=== PATIENT | female | born 1965 | race Hispanic/Latino ===

== ENCOUNTER 2025-02-19 06:11 | Inpatient (IN) | payer OTHER, SELFPAY ==
[2024-12-18 15:09] VITALS: BMI 43.0
[2024-12-20 03:28] VITALS: PULSE 79; RESP 12; O2SAT 97
[2025-02-16 07:50] VITALS: BMI 43.9
[2025-02-19] VITALS (42 sets, daily range): BP systolic 58–124; BP diastolic 39–78; PULSE 77–110; RESP 10–50; TEMP 30–37.3; O2SAT 94–100; BMI 43.9; BMI 44.5
--- NOTE | 2025-02-19 | DI.RAD.S_ITS ---
PROCEDURE: XR ANKLE RT MIN 3V INDICATIONS: RT ANKLE ORIF TECHNIQUE: 3 views of the ankle were acquired. COMPARISON: [facility], CR, XR ANKLE 3+ VIEWS RIGHT, 02/17/2025, 10:31. FINDINGS: Intraoperative ORIF at the ankle. There appears to be amputation of the distal fibula. Relatively good anatomic alignment is present. IMPRESSION: Intraoperative ORIF. Dictated by: Neema Ford M.D. on 02/19/2025 at 15:40 Approved by: Neema Ford M.D. on 02/19/2025 at 15:41
--- NOTE | 2025-02-19 06:53 | PM.HP.1 ---
History of Present Illness History of Present Illness Chief complaint: R ankle fusion Narrative: 60 year old female here for pre-op. Surgical course was complicated by poor bone quality secondary to acute Charcot neuroarthropathy as evidenced by loss of fixation via external and internal s/p delta frame removal, as well as full-thickness wounds to lateral and medial ankles as well as eschar to posterior heel, which are all improving since onset. Pain is absent. Patient denies n/v/f/c/sob/cp. FORMERLY [facility] Medical History 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) GERD (gastroesophageal reflux disease) Ankle fracture, right (10/23/24) PVD (peripheral vascular disease) HTN (hypertension) Diabetes NSTEMI (non-ST elevated myocardial infarction) (10/24/24) HLD (hyperlipidemia) Surgical History History of ankle surgery (10/29/24) Hx of cardiac cath (10/26/24) History of amputation of toe Social History household members: children alcohol intake: never Meds Home Medications and Allergies Home Medications ?Medication ?Instructions ?Recorded ?Confirmed ?Type aspirin 81 mg capsule 81 mg PO DAILY 12/12/24 02/19/25 History cetirizine 10 mg capsule 10 mg PO DAILY PRN Allergies 12/12/24 02/19/25 History gabapentin 100 mg capsule 200 mg PO TID 12/12/24 02/19/25 History glipizide 5 mg tablet, extended 5 mg PO QAM 12/12/24 02/19/25 History release 24 hr hydrochlorothiazide 25 mg tablet 25 mg PO DAILY 12/12/24 02/19/25 History insulin human U-100 NPH-regulr 36 unit SUBCUT BID 12/12/24 02/19/25 History 70-30 mix 100 unit/mL subcutaneous susp (Novolin 70/30 U-100 Insulin) losartan 100 mg tablet 100 mg PO DAILY 12/12/24 02/19/25 History metoprolol tartrate 25 mg tablet 25 mg PO DAILY 12/12/24 02/19/25 History simvastatin 40 mg tablet 40 mg PO QPM 12/12/24 02/19/25 History tirzepatide 2.5 mg/0.5 mL 2.5 mg SUBCUT QWEEK 12/12/24 02/19/25 History subcutaneous pen injector (Sabina) doxycycline monohydrate 100 mg 100 mg PO BID #14 caps 12/20/24 02/19/25 Rx capsule Allergies Allergy/AdvReac Type Severity Reaction Status Date / Time No Known Drug Allergies Allergy Verified 02/19/25 06:43 Exam Extrem Other: Right ankle: valgus alginment with mulitple wounds and eschars Assessment & Plan Assessment & Plan narrative: 1. Right ankle neuropathic joint, fracture, and dislocation Patient seen and evaluated. Surgical plan: right tibiotalocalcaneal arthrodesis with hardware removals and wound vac application. Risks and benefits of the procedure discussed with all questions answered to patient's satisfaction. Reviewed potential complications that may include but not limited to the following: DVT, failure to resolve all symptoms, infection, nerve injury, bleeding, recurrence, or wound. Reviewed surgical technique and general aftercare protocols. All questions answered to patient's satisfaction with no guarantees made. Patient verbalized understanding and agreed with surgical plan. RTC as scheduled. Time-Based Coding :: [TOTAL MINUTES] spent with patient and on the chart (including review of chart, obtaining history, exam, reviewing outside data, placing orders, documenting exam and treatment plan, and counseling patient) on [DATE].
--- NOTE | 2025-02-19 06:57 | PM.PREOP ---
Pre-operative Note Interval Note History & Physical reviewed/Exam performed by Physician: Yes Changes to H&P: No
[2025-02-19] MEDS: LACTATED RINGERS 1,000 ML 100 ML IV ×3 (07:13→16:46)
--- NOTE | 2025-02-19 09:12 | SUR.OPER ---
PRE-PROCEDURE SKIN ASSESSMENT- WOUNDS TO RIGHT LOWER EXTREMITY: LATERAL AND MEDIAL ANKLE AND HEEL. SCATTERED, GENERALIZED BRUISING TO RIGHT LOWER EXTREMITY
[2025-02-19 09:16] LABS: Add Manual Diff / Slide Review NO; Hematocrit 35.2 % (36-46); Hemoglobin 11.9 g/dL (12.0-16.0); Lymphocytes Absolute Auto 3200 /uL (1100-4500); Mean Corpuscular HGB Conc 33.8 % (30-36); Mean Corpuscular Hemoglobin 28.0 PG (26-34); Mean Corpuscular Volume 82.6 fL (80-100); Platelet Count 341 X10^3/uL (150-400)
--- NOTE | 2025-02-19 10:19 | SUR.OPER ---
Supine on padded OR bed, head on pillow, arms secured on padded arm boards at <90 degrees abduction, legs uncrossed, safety belt at waist, tape over blanket over lower left leg. Hip gel bump to right side/hip per surgeon direction. Gel pad under right thigh to cover and protect patient skin from le catheter tubing. Gel pad to left heel. Final position approved by surgeon prior to start of procedure. All pressure points padded and protected.
[2025-02-19] MEDS: SODIUM CHLORIDE IRRIG SOLUTION 3,000 ML, GENTAMICIN 240 MG IRR (10:25)
[2025-02-19] MEDS: ACETAMINOPHEN IV 1,000 MG/100 ML VIAL 400 MG IV (13:34)
[2025-02-19] MEDS: INSULIN REGULAR 100 UNIT/ML 3 ML VIAL IV (14:20)
--- NOTE | 2025-02-19 15:37 | EKG_ITS ---
[address] [address] Test Date: 2025-02-19 Pat Name: Janine Barrios Department: [facility] Room: Gender: Female [employer] Supervisor: KIKO : 1965 Requested By: Order Number: [id number] Reading MD: Andrea Paul Measurements Intervals [place] Rate: 96 P: 41 TX: 132 QRS: 64 QRSD: 68 T: 58 QT: 362 QTc: 457 Interpretive Statements Normal sinus rhythm Electronically Signed On 02-19-2025 17:12:51 PDT by Andrea Paul
--- NOTE | 2025-02-19 15:41 | PM.PN.1 ---
Subjective Subjective Interval history: Patient is s/p right tibiotalocalcaneal (pantalar fusion) with wound vac application. She would require Home Health and Wound Care to follow upon discharge. Please involve Case Management as necessary for Wound Vac authorization. Thank you. Exam Vital Signs (past 8 hours): - 02/19/25 14:59 Temperature 97.2 F L Pulse Rate 98 H Respiratory Rate 16 Blood Pressure 98/60 Pulse Oximetry 100 Oxygen Delivery Method Room Air Oxygen Flow Rate 4 Oxygen Delivery Method Room Air Oxygen Flow Rate 4 Objective Labs 02/19/25 07:35 Labs: Laboratory Results - last 24 hr 02/19/25 02/19/25 02/19/25 06:49 07:35 09:41 WBC 10.4 RBC 4.26 Hgb 11.9 L Hct 35.2 L MCV 82.6 MCH 28.0 MCHC 33.8 RDW 14.4 Plt Count 341 Neut % (Auto) 57.7 Lymph % (Auto) 31.0 Dane % (Auto) 7.5 Eos % (Auto) 3.3 Baso % (Auto) 0.5 Neut # (Auto) 6000 Lymph # (Auto) 3200 Dane # (Auto) 800 Eos # (Auto) 300 Baso # (Auto) 0 POC Whole Bld Glucose 129 H 151 H 02/19/25 02/19/25 02/19/25 11:50 13:56 14:54 WBC RBC Hgb Hct MCV MCH MCHC RDW Plt Count Neut % (Auto) Lymph % (Auto) Dane % (Auto) Eos % (Auto) Baso % (Auto) Neut # (Auto) Lymph # (Auto) Dane # (Auto) Eos # (Auto) Baso # (Auto) POC Whole Bld Glucose 149 H 211 H 200 H REPLACED BY [facility] Medical History 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) GERD (gastroesophageal reflux disease) Ankle fracture, right (10/23/24) PVD (peripheral vascular disease) HTN (hypertension) Diabetes NSTEMI (non-ST elevated myocardial infarction) (10/24/24) HLD (hyperlipidemia) Surgical History History of ankle surgery (10/29/24) Hx of cardiac cath (10/26/24) History of amputation of toe Social History household members: children Smoking Status: Never smoker alcohol intake: never Assessment & Plan Time-Based Coding :: [TOTAL MINUTES] spent with patient and on the chart (including review of chart, obtaining history, exam, reviewing outside data, placing orders, documenting exam and treatment plan, and counseling patient) on [DATE].
[2025-02-19 16:33] LABS: Hematocrit 26.8 % (36-46); Hemoglobin 8.9 g/dL (12.0-16.0); Mean Corpuscular HGB Conc 33.3 % (30-36); Mean Corpuscular Hemoglobin 27.8 PG (26-34); Mean Corpuscular Volume 83.5 fL (80-100); Platelet Count 324 X10^3/uL (150-400)
--- NOTE | 2025-02-19 16:41 | PM.CN ---
History of Present Illness Consult details Date Patient Seen: 02/19/25 Chief complaint: R ankle fusion Reason for consult: Post operative hypotension. Requesting provider: Wellington Nelson Narrative: HPI: The patient was a 60-year-old female with history of diabetes who underwent an ankle revision today. She had a talus fusion and wound VAC application. Her case was complicated by a 250 mL blood loss as well as persistent hypotension requiring 4 L of crystalloid and multiple boluses of Wilber-Synephrine. She required pressors for a short time after the surgery and then stabilized. She was transferred to the ICU he was able to come off from pressors. She does have a history of a perioperative NSTEMI in the past but denies any chest pain, or dyspnea. She does have a history of CLARA in his used BiPAP while in the hospital in the past. There were no other complications reported from the surgical team. ROS: All else reviewed and otherwise unremarkable except as noted in the history and physical. PMH: NSTEMI CLARA Morbid obesity PVD DM HTN HLD O: NAD, alert and oriented, fluent speech, calm. Normocephalic skull, EOMI, anicteric sclera, symmetric pupils. Oropharynx unremarkable, no droop. Neck supple, midline trachea, no adenopathy. Lungs clear, normal rate and effort. Heart regular, no murmur gallop or rub. Abdomen is soft, non distended and non tender. Extremities are free of edema. Skin is free of rash or lesions. Joints are not swollen or deformed. Judgment appears to be normal. The right lower extremity is wrapped and there was a wound VAC applied under the dressing. A/P: 1. Intraoperative and postoperative hypotension, improved. 2. Diabetes type 2, insulin-dependent. 3. CLARA with use of N PPV at home. 4. Hypertension 5. Morbid obesity. 6. Anemia PLAN: -we will use insulin sliding scale tonight and a carb controlled diet. -we will continue IV fluids at 100 mL/hour and monitor blood pressure. -we will stop antibiotics after her perioperative doses and continue wound VAC. -we will hold blood pressure pills for tonight start these in the morning if her pressure started to increase. -monitor hemoglobin -monitored troponin tonight and tomorrow morning -discharge planning which apparently will include a wound VAC. Full code. 35 min spent. Meds Home Medications and Allergies Home Medications ?Medication ?Instructions ?Recorded ?Confirmed ?Type aspirin 81 mg capsule 81 mg PO DAILY 12/12/24 02/19/25 History cetirizine 10 mg capsule 10 mg PO DAILY PRN Allergies 12/12/24 02/19/25 History gabapentin 100 mg capsule 200 mg PO TID 12/12/24 02/19/25 History glipizide 5 mg tablet, extended 5 mg PO QAM 12/12/24 02/19/25 History release 24 hr hydrochlorothiazide 25 mg tablet 25 mg PO DAILY 12/12/24 02/19/25 History insulin human U-100 NPH-regulr 36 unit SUBCUT BID 12/12/24 02/19/25 History 70-30 mix 100 unit/mL subcutaneous susp (Novolin 70/30 U-100 Insulin) losartan 100 mg tablet 100 mg PO DAILY 12/12/24 02/19/25 History metoprolol tartrate 25 mg tablet 25 mg PO DAILY 12/12/24 02/19/25 History simvastatin 40 mg tablet 40 mg PO QPM 12/12/24 02/19/25 History tirzepatide 2.5 mg/0.5 mL 2.5 mg SUBCUT QWEEK 12/12/24 02/19/25 History subcutaneous pen injector (Mounjaro) doxycycline monohydrate 100 mg 100 mg PO BID #14 caps 12/20/24 02/19/25 Rx capsule Allergies Allergy/AdvReac Type Severity Reaction Status Date / Time No Known Drug Allergies Allergy Verified 02/19/25 06:43 Exam Vital Signs (past 8 hours): - 02/19/25 14:59 02/19/25 15:05 02/19/25 15:10 Temperature 97.2 F L Pulse Rate 98 H 102 H 102 H Respiratory Rate 16 25 H 16 Blood Pressure 98/60 58/39 L 100/50 L Pulse Oximetry 100 98 98 Oxygen Delivery Method Room Air Nasal Cannula Nasal Cannula Oxygen Flow Rate 4 4 4 02/19/25 15:10 02/19/25 15:15 02/19/25 15:15 Temperature 97.2 F L Pulse Rate 98 H 77 92 H Respiratory Rate 16 16 16 Blood Pressure 99/51 L 100/62 120/70 Pulse Oximetry 100 98 98 Oxygen Delivery Method Room Air Room Air Nasal Cannula Oxygen Flow Rate 4 02/19/25 15:30 02/19/25 15:45 Temperature 97.2 F L Pulse Rate 110 H 78 Respiratory Rate 14 16 Blood Pressure 120/70 124/78 Pulse Oximetry 98 98 Oxygen Delivery Method Nasal Cannula Nasal Cannula Oxygen Flow Rate 4 4 Oxygen Delivery Method Nasal Cannula Oxygen Flow Rate 4 Objective Labs 02/19/25 15:40 02/19/25 15:40 Labs: Laboratory Results - last 24 hr 02/19/25 02/19/25 02/19/25 06:49 07:35 09:41 WBC 10.4 RBC 4.26 Hgb 11.9 L Hct 35.2 L MCV 82.6 MCH 28.0 MCHC 33.8 RDW 14.4 Plt Count 341 Neut % (Auto) 57.7 Lymph % (Auto) 31.0 [place] % (Auto) 7.5 Eos % (Auto) 3.3 Baso % (Auto) 0.5 Neut # (Auto) 6000 Lymph # (Auto) 3200 [place] # (Auto) 800 Eos # (Auto) 300 Baso # (Auto) 0 POC Whole Bld Glucose 129 H 151 H 02/19/25 02/19/25 02/19/25 11:50 13:56 14:54 WBC RBC Hgb Hct MCV MCH MCHC RDW Plt Count Neut % (Auto) Lymph % (Auto) [place] % (Auto) Eos % (Auto) Baso % (Auto) Neut # (Auto) Lymph # (Auto) [place] # (Auto) Eos # (Auto) Baso # (Auto) POC Whole Bld Glucose 149 H 211 H 200 H 02/19/25 02/19/25 15:40 16:31 WBC 15.2 H RBC 3.21 L Hgb 8.9 L Hct 26.8 L MCV 83.5 MCH 27.8 MCHC 33.3 RDW 14.3 Plt Count 324 Neut % (Auto) Lymph % (Auto) [place] % (Auto) Eos % (Auto) Baso % (Auto) Neut # (Auto) Lymph # (Auto) [place] # (Auto) Eos # (Auto) Baso # (Auto) POC Whole Bld Glucose 174 H [facility] Medical History 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) GERD (gastroesophageal reflux disease) Ankle fracture, right (10/23/24) PVD (peripheral vascular disease) HTN (hypertension) Diabetes NSTEMI (non-ST elevated myocardial infarction) (10/24/24) HLD (hyperlipidemia) Surgical History History of ankle surgery (10/29/24) Hx of cardiac cath (10/26/24) History of amputation of toe Social History household members: children Tobacco & Substance Use Smoking Status: Never smoker alcohol intake: never Assessment & Plan Time-Based Coding :: [TOTAL MINUTES] spent with patient and on the chart (including review of chart, obtaining history, exam, reviewing outside data, placing orders, documenting exam and treatment plan, and counseling patient) on [DATE].
[2025-02-19] MEDS: INSULIN LISPRO 100 UNIT/ML 3ML VIAL SUBCUT ×2 (16:44→22:00)
[2025-02-19] MEDS: ACETAMINOPHEN 325 MG TABLET 650 MG PO (16:45)
[2025-02-19 17:22] LABS: Alanine Aminotransferase 14 IU/L (<35); Albumin 3.0 g/dL (3.5-5.0); Albumin Globulin Ratio 1.0 (1.0-2.8); Alkaline Phosphatase 72 U/L (38-126); Blood Urea Nitrogen 25 mg/dL (7-17); Calcium 8.3 mg/dL (8.4-10.2); Carbon Dioxide 27 mmol/L (22-32); Chloride 103 mmol/L (98-107); Estimated Glomerular Filt Rate > 60 mL/min (>60); Globulin 3.1 g/dL (1.7-4.1); Glucose 171 mg/dL (70-99); HEMOLYSIS < 15 (0-50); Potassium 4.4 mmol/L (3.4-5.1); Sodium 135 mmol/L (137-145); Total Protein 6.1 g/dL (6.3-8.2)
[2025-02-19 17:32] LABS: Troponin I 0.039 ng/mL (0.01-0.034)
--- NOTE | 2025-02-19 18:18 | PC.ADMIT ---
[email or web address] Marti Admission Note: PATIENT ARRIVED TO UNIT AT 1610. GUILLERMO AC IVS. LR BOLUS RUNNING. 100% SPO2 ON ROOM AIR. NO S/S OF SOB OR RESPI DISTRESS. NO C/O PAIN AT THIS TIME. MAP > 65. SEE VITALS. DR ESCAMILLA AT BEDSIDE WITH PATIENT. DRESSING TO R FOOT WITH XANDER WRAP, SPLINT, AND WOUND VAC C/D/I. 175 MLS IN WOUND VAC CANISTER. LEG IS WARM TO TOUCH. PER PATIENT, LEG FEELS NUMB BUT SHE DOES HAVE SENSATION WITH TOUCH. PAN IN PLACE FROM OR. LABS SENT DOWN. SEE EMAR FOR MEDS GIVEN. CARE ONGOING. DONOR PAPERWORK GIVEN TO PATIENT . The patient,Janine Barrios,60 y/o, was given written information regarding hospital policies, unit procedures and contact persons. Patient's smoking status: Never smoker. Vital Signs - 8 hr 02/19/25 14:59 02/19/25 15:05 02/19/25 15:10 Temperature 97.2 F L Pulse Rate 98 H 102 H 102 H Respiratory Rate 16 25 H 16 Blood Pressure 98/60 58/39 L 100/50 L Pulse Oximetry 100 98 98 Oxygen Delivery Method Room Air Nasal Cannula Nasal Cannula Oxygen Flow Rate 4 4 4 02/19/25 15:10 02/19/25 15:15 02/19/25 15:15 Temperature 97.2 F L Pulse Rate 98 H 77 92 H Respiratory Rate 16 16 16 Blood Pressure 99/51 L 100/62 120/70 Pulse Oximetry 100 98 98 Oxygen Delivery Method Room Air Room Air Nasal Cannula Oxygen Flow Rate 4 02/19/25 15:30 02/19/25 15:45 02/19/25 16:10 Temperature 97.2 F L 97.8 F Pulse Rate 110 H 78 Respiratory Rate 14 16 Blood Pressure 120/70 124/78 Pulse Oximetry 98 98 Oxygen Delivery Method Nasal Cannula Nasal Cannula Oxygen Flow Rate 4 4 02/19/25 16:26 02/19/25 16:30 02/19/25 16:30 Temperature Pulse Rate 92 H 91 H Respiratory Rate 24 18 Blood Pressure 110/55 L Pulse Oximetry 100 100 Oxygen Delivery Method Oxygen Flow Rate 02/19/25 16:30 02/19/25 16:45 02/19/25 16:45 Temperature Pulse Rate 92 H Respiratory Rate 14 Blood Pressure 98/52 L Pulse Oximetry 100 Oxygen Delivery Method Nasal Cannula Oxygen Flow Rate 02/19/25 17:00 02/19/25 17:00 02/19/25 17:15 Temperature Pulse Rate 93 H 93 H Respiratory Rate 20 26 H Blood Pressure 100/58 L Pulse Oximetry 100 100 Oxygen Delivery Method Oxygen Flow Rate 02/19/25 17:15 02/19/25 17:30 02/19/25 17:30 Temperature Pulse Rate 92 H Respiratory Rate 19 Blood Pressure 102/54 L 98/51 L Pulse Oximetry 100 Oxygen Delivery Method Oxygen Flow Rate 02/19/25 17:45 02/19/25 17:45 Temperature Pulse Rate 92 H Respiratory Rate 17 Blood Pressure 93/52 L Pulse Oximetry 100 Oxygen Delivery Method Oxygen Flow Rate
[2025-02-19] MEDS: INSULIN GLARGINE 100 UNIT/ML 3ML PEN 25 UNIT SUBCUT (21:58)
[2025-02-19] MEDS: ATORVASTATIN 20 MG TABLET PO (22:01)
[2025-02-19] MEDS: DOXYCYCLINE HYCLATE 100 MG TABLET PO (22:01)
[2025-02-19] MEDS: GABAPENTIN 100 MG CAPSULE 200 MG PO (22:01)
[2025-02-19] MEDS: DOCUSATE 100 MG CAPSULE PO (22:02)
[2025-02-20] VITALS (56 sets, daily range): BP systolic 69–117; BP diastolic 33–60; PULSE 87–114; RESP 10–41; TEMP 30–36.4; O2SAT 94–100
[2025-02-20] MEDS: ACETAMINOPHEN 325 MG TABLET 650 MG PO ×4 (03:23→21:41)
[2025-02-20] MEDS: LACTATED RINGERS 1,000 ML 100 ML IV (04:22)
[2025-02-20 05:16] LABS: Hematocrit 21.1 % (36-46); Hemoglobin 7.2 g/dL (12.0-16.0); Mean Corpuscular HGB Conc 34.1 % (30-36); Mean Corpuscular Hemoglobin 28.3 PG (26-34); Mean Corpuscular Volume 83.2 fL (80-100); Platelet Count 225 X10^3/uL (150-400)
[2025-02-20 06:10] LABS: Troponin I 0.022 ng/mL (0.01-0.034)
[2025-02-20] MEDS: METOPROLOL IR 25 MG TABLET PO (08:20)
[2025-02-20] MEDS: DOXYCYCLINE HYCLATE 100 MG TABLET PO ×2 (08:20→21:41)
[2025-02-20] MEDS: DOCUSATE 100 MG CAPSULE PO ×2 (08:20→21:43)
[2025-02-20] MEDS: ASPIRIN EC 81 MG TABLET PO (08:20)
[2025-02-20] MEDS: LOSARTAN 50 MG TABLET 100 MG PO (08:20)
[2025-02-20] MEDS: GABAPENTIN 100 MG CAPSULE 200 MG PO ×3 (08:20→21:40)
[2025-02-20] MEDS: INSULIN GLARGINE 100 UNIT/ML 3ML PEN 25 UNIT SUBCUT ×2 (08:22→21:45)
[2025-02-20] MEDS: INSULIN LISPRO 100 UNIT/ML 3ML VIAL SUBCUT ×4 (08:23→16:56)
--- NOTE | 2025-02-20 08:29 | P.OP_ITS ---
Operative Date/Time/Diagnoses Date of procedure: 02/19/25 Time of procedure: 07:45 Pre-op diagnosis: 1. 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 Diabetic and pressure ulcers from previous skin injuries and surgeries Post-op diagnosis: same Procedure & Clinicians Procedure: 1. Tibiotalar arthrodesis 2. Talocalcaneal arthrodesis 3. Wound vac application 4. Hardware removal Same procedure(s) as scheduled: Yes Indications: Limb salvage Surgeon: Wellington Nelson Assisted?: No Anesthesia Type: General and Peripheral nerve block Operative Notes Findings: Consistent with diangosis Closure Type: non-primary (Partial-closure with wound vac application to lateral incision) Specimen(s): other (Medial ankle swab culture) Applied: catheter, device(s) and implant(s) Estimated Blood Loss (mL): 250 Blood products transfused: none Tourniquet time (min): 230 Procedure in detail: Patient was identified, marked, and consented. Regional anesthesia was performed at pre-op holding. Patient was transferred onto operating table and secured. General anesthesia was administered. A catheter was inserted. A 32 inch thigh tourniquet was applied over well-padded surface, and the machine was set to 300 mmHg. Right lower extremity was prepped and draped in the usual sterile fashion, followed by official timeout with the surgical team all in agreement. Attention was first directed to the lateral aspect of the leg. A curvilinear incision was made from anterolateral aspect of fibula, above the posteriorlateral wound, towards the base of fourth metatarsal using a #15 scalpel. Dissection was carried dwon to the level of the bone, where fibular plates were present and removed. Non-union with necrosis was noted to the bone. Extensive hypertrophic tissue were also sharply removed using appropriate instruments. Decision was made to perform transfibular osteotomy due to insufficiency of the bone. Attention was then directed to the lateral aspect of the ankle joint. The talus is laterally displaced with impaction into the tibia and no range of motion due to adhesion. Careful sharp dissection was carried out for exposure of the ankle mortise and judaism of anatomical alignment. At the same time, the joint was prepped in ancitipation for fusion. This inclusded resphaping of the distal tibial plafond due to congenital and acquired deformities. Decision was made to debride the chronic ulcer over medial malleolus due to underlying adhesion preventing the reduction of ankle joint. A deep wound culture was taken of the sanguineous drainage. Improved ankle alignment was verified on fluroscpoy. Attention was then directed to the lateral aspect of subtalar joint, which was sharpy exposed and prepared for fusion. Decision was then made to add bone putty to the prepped ankle and subtalar joints. The calcaneus was medialized due to rigid valgus deformity. Under interoperative fluoroscopy, a guide wire was retrograded for both talocalcaneal and tibiotalar arthrodesis. Following manufacture instructions, a 10.5 x 180 mm DualCompression Hindfoot Nail was inserted through a linear incision at the plantar aspect. Tourniquet was released before and at two hour mio with more than fifteen minues of rest in between. Surgical sites were irrigated copiously using 3 liters of normal saline mixed with 240 mg gentamicin solution. Primary closure was perfored on plantar heel as well as screw insertion points using 2-0 and 3-0 nylons. Partial closure was also performed at the proximal and distal aspects of the lateral incision with a central wound. Decision was then made to apply wound vac and bridge over the following wounds: lateral measuring approximately 6.5 x 4.5 x 3 cm and medial measuring 3.5 x 2.5 x 1 cm. The pressure was set and held continuous at 100 mmHg. Surgical limb was washed and dried. Dry sterile dressing was applied, followed by cast padding and posterior splint. Patient tolerated procedure without complication. Non-weight bearing to surgical limb. Elevate above heart. Ice behind knee intermittently. Keep dressing clean, dry, and intact except for wound vac changes. Complications: none Post-operative Condition: stable Disposition: ICU Plan for aftercare: Non-weight bearing to surgical limb. Elevate above heart. Ice behind knee intermittently. Keep dressing clean, dry, and intact except for wound vac changes.
--- NOTE | 2025-02-20 08:36 | PM.PN.1 ---
Subjective Subjective Interval history: Non-weight bearing to surgical limb. Elevate above heart on pillows. Ice behind knee 15 minutes/hour when awake. Keep dressing clean, dry, and intact except for wound vac changes/trouble shoot. Has outpatient appointment scheduled with me coming Sunday. Op note to follow. Appreciate cooperative efforts. Exam Vital Signs (past 8 hours): - 02/20/25 00:45 02/20/25 00:45 02/20/25 01:00 Pulse Rate 106 H 105 H Respiratory Rate 22 19 Blood Pressure 100/49 L Pulse Oximetry 95 97 Fraction of Inspired Oxygen 02/20/25 01:00 02/20/25 01:30 02/20/25 02:00 Pulse Rate 104 H 105 H Respiratory Rate 19 18 Blood Pressure 106/57 L Pulse Oximetry 94 95 Fraction of Inspired Oxygen 02/20/25 02:30 02/20/25 03:00 02/20/25 03:30 Pulse Rate 106 H 109 H 109 H Respiratory Rate 21 22 21 Blood Pressure Pulse Oximetry 96 97 97 Fraction of Inspired Oxygen 02/20/25 04:00 02/20/25 04:00 02/20/25 04:07 Pulse Rate 106 H 112 H Respiratory Rate 21 33 H Blood Pressure Pulse Oximetry 96 98 Fraction of Inspired Oxygen 25 02/20/25 04:07 Pulse Rate Respiratory Rate Blood Pressure 94/52 L Pulse Oximetry Fraction of Inspired Oxygen Fraction of Inspired Oxygen 25 Oxygen Delivery Method Nasal Cannula,BiPAP Oxygen Flow Rate 4 Objective Labs 02/20/25 05:01 02/19/25 16:57 Labs: Laboratory Results - last 24 hr 02/19/25 02/19/25 02/19/25 06:49 07:35 09:41 WBC 10.4 RBC 4.26 Hgb 11.9 L Hct 35.2 L MCV 82.6 MCH 28.0 MCHC 33.8 RDW 14.4 Plt Count 341 Neut % (Auto) 57.7 Lymph % (Auto) 31.0 [place] % (Auto) 7.5 Eos % (Auto) 3.3 Baso % (Auto) 0.5 Neut # (Auto) 6000 Lymph # (Auto) 3200 [place] # (Auto) 800 Eos # (Auto) 300 Baso # (Auto) 0 Sodium Potassium Chloride Carbon Dioxide BUN Creatinine Estimated GFR BUN/Creatinine Ratio Glucose POC Whole Bld Glucose 129 H 151 H Calcium Total Bilirubin AST ALT Alkaline Phosphatase Troponin I Total Protein Albumin Globulin Albumin/Globulin Ratio 02/19/25 02/19/25 02/19/25 11:50 13:56 14:54 WBC RBC Hgb Hct MCV MCH MCHC RDW Plt Count Neut % (Auto) Lymph % (Auto) [place] % (Auto) Eos % (Auto) Baso % (Auto) Neut # (Auto) Lymph # (Auto) [place] # (Auto) Eos # (Auto) Baso # (Auto) Sodium Potassium Chloride Carbon Dioxide BUN Creatinine Estimated GFR BUN/Creatinine Ratio Glucose POC Whole Bld Glucose 149 H 211 H 200 H Calcium Total Bilirubin AST ALT Alkaline Phosphatase Troponin I Total Protein Albumin Globulin Albumin/Globulin Ratio 02/19/25 02/19/25 02/19/25 15:40 16:31 16:57 WBC 15.2 H RBC 3.21 L Hgb 8.9 L Hct 26.8 L MCV 83.5 MCH 27.8 MCHC 33.3 RDW 14.3 Plt Count 324 Neut % (Auto) Lymph % (Auto) [place] % (Auto) Eos % (Auto) Baso % (Auto) Neut # (Auto) Lymph # (Auto) [place] # (Auto) Eos # (Auto) Baso # (Auto) Sodium 135 L Potassium 4.4 Chloride 103 Carbon Dioxide 27 BUN 25 H Creatinine 0.82 Estimated GFR > 60 BUN/Creatinine Ratio 30.5 H Glucose 171 H POC Whole Bld Glucose 174 H Calcium 8.3 L Total Bilirubin < 0.1 L AST 24 ALT 14 Alkaline Phosphatase 72 Troponin I 0.039 H Total Protein 6.1 L Albumin 3.0 L Globulin 3.1 Albumin/Globulin Ratio 1.0 02/19/25 02/20/25 02/20/25 21:47 05:01 07:51 WBC 9.2 RBC 2.54 L Hgb 7.2 L Hct 21.1 L MCV 83.2 MCH 28.3 MCHC 34.1 RDW 14.5 Plt Count 225 Neut % (Auto) Lymph % (Auto) [place] % (Auto) Eos % (Auto) Baso % (Auto) Neut # (Auto) Lymph # (Auto) [place] # (Auto) Eos # (Auto) Baso # (Auto) Sodium Potassium Chloride Carbon Dioxide BUN Creatinine Estimated GFR BUN/Creatinine Ratio Glucose POC Whole Bld Glucose 248 H 244 H Calcium Total Bilirubin AST ALT Alkaline Phosphatase Troponin I 0.022 Total Protein Albumin Globulin Albumin/Globulin Ratio [facility] Medical History 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) GERD (gastroesophageal reflux disease) Ankle fracture, right (10/23/24) PVD (peripheral vascular disease) HTN (hypertension) Diabetes NSTEMI (non-ST elevated myocardial infarction) (10/24/24) HLD (hyperlipidemia) Surgical History History of ankle surgery (10/29/24) Hx of cardiac cath (10/26/24) History of amputation of toe Social History household members: children Smoking Status: Never smoker alcohol intake: never Assessment & Plan Time-Based Coding :: [TOTAL MINUTES] spent with patient and on the chart (including review of chart, obtaining history, exam, reviewing outside data, placing orders, documenting exam and treatment plan, and counseling patient) on [DATE]. Quality VTE Deep Vein Thrombosis/Pulmonary Embolism Present on Admission: No
--- NOTE | 2025-02-20 14:08 | CM.DANOTE ---
DCP Assessment note pt is a 60yo F (Canadian speaking) POD1 right ankle fusion with Dr. Nelson. hospitalist following. TILE LAYER HELPER reviewed EMR. per Dr. Nelson note, would like for HH and would vac to be set up. preference for both OP and HH to follow wound care need. per Dr. Paul and Dr. Nelson, not stable for dc today. TILE LAYER HELPER worked with Kevan at [facility] throughout day, sent necessary clinicals/wound care order form. Per Frances at [facility], wound vac processed and ready for delivery tomorrow. TILE LAYER HELPER coordinated with both pt and Dtr Eugenia ([phone]) confirm they live together in [place]. Confirm dtr will be able to assist at home. Hx of services with [facility]. TILE LAYER HELPER sent referral to [facility]. completed f2f/HH order. they report they should be able to accept. P: anticipate dc tomorrow/when medically stable home with family/[facility]/wound vac. CM team will continue to follow closely for DCP coordination AMELIA Hinds Discharge Planning/Care Management CM Discharge Assessment Start: 02/19/25 15:51 Freq: Status: Active Protocol: Document 02/20/25 14:02 (Rec: 02/20/25 14:08 [id number]) Discharge Planning Assessment Assigned Discharge AMELIA Haile Snow Technician Provider Dr. Nesbitt, [facility] Insurance Other (enter in Comment) Insurance Comment [facility] DPOA/Assigned velia Gaming Designee Name Contact Information [phone] Advance Directives? No Advance Directives No on File History Provided By Patient,Family Member,Medical Record Prior Living House Arrangements Household Members children Independent with ADL Yes 's Is patient alert and Yes oriented? [facility] Home Health Nurse used prior to admission: Comment [facility] Comment CPAP at night Patient/Family Home with Home Health Preference Discharge Plan Home with Home Health Transportation family in POV Arrangement Referrals Initiated Home Health Additional Comment HH and wound vac If patient plan is Yes home with home health: Has signed face to face form been completed? SNF/HH Preference resume [facility] Whiteboard Updated Yes in Patient Room with name and ext. # of Mica Paster Review Status In Process Please Provide Date 02/20/25 Initial DC Assessment Was Performed Next Review Type Continued Stay Review Pre-Anesthesia Assessment Start: 02/16/25 07:50 Freq: Status: Complete Protocol: Document 02/16/25 07:50 CAB (Rec: 02/16/25 09:05 CAB [id number]) Pre-Anesthesia Assessment PAC Comment Chart review 02/16/25. Pt s/p right ankle ORIF 12/18/24. Canadian speaking patient Preferred Name M[facility] Patient Information Chart Review Reviewed Via Primary Care Jeanmarie Farfan Provider Specialist Seen Machine Silver Stripper,Operations Label Clerk Primary Language Canadian Preferred Language Hazardous Waste Management Specialist Required Yes Height 152.4 cm Weight 102 kg Body Mass Index (BMI 43.9 ) Hx Anesthesia No Reactions Hx Family Anesthesia No Reaction Hx Malignant No Hyperthermia Hx Blood Transfusion No Reaction Anesthesia Review Yes: PAC courtesy re: Medical history Requested Hr Manager No alcohol intake never Substance Use Type [ does not use #R] History of Falling ( Yes Recent or History of ) Patient is No completely paralyzed or completely immobile Mental Status Oriented to own ability Hx Sleep Apnea No: Suspected CLARA Currently Taking a Yes: Metoprolol Beta Raissa Anti-Coagulant Yes: Aspirin Therapy Has a Machine Silver Stripper Yes: Visit 12/02/[address] Quigley @ Hx Pacemaker/ICD No Pacemaker Rep No Required? Comment Cardiac records scanned and in surgery folder Urinary Catheter No Present Hx Urinary Self No Catheterization Diabetes Yes: Insulin, tirzepatide HgbA1C 7.5 Date 12/09/24 Patient No Lactating No Presence of external Yes or internal medical devices? Marital Status Single Lives With children Patient Discharge Return Home Plan Description Emergency Contact Evelyn Amaya - daughter Name Emergency Contact [phone] Phone Number Advance Directives? No Advance Directives No on File
--- NOTE | 2025-02-20 14:39 | PM.PN.1 ---
Subjective Subjective Interval history: Summary: Admitted after a talus fusion. She had 150 EBL at that time. She was hypotensive requiring Wilber-Synephrine in the operating room. She improved in the ICU and did not need pressors. She was had 250 mL of output from her wound VAC over the last 12 hours. S: No pain complaints, or dyspnea. O: NAD, alert and oriented. Fluent speech. Lungs are clear, normal rate and effort. Heart is regular, no murmur gallop or rub. Abdomen is soft, non distended. Extremities are free of edema. The right lower extremity is wrapped and there was a wound VAC applied under the dressing. A/P: 1. Intraoperative and postoperative hypotension, improved. 2. Diabetes type 2, insulin-dependent. 3. CLARA with use of N PPV at home. 4. Hypertension 5. Morbid obesity. 6. Anemia PLAN: -we will observe for an additional 24 hours given the relatively large volume of output in her wound VAC. Discussed with Dr. Nelson [id number] today. -working on approval for wound VAC for home use, hopeful discharge on February 21. Exam Vital Signs (past 8 hours): - 02/20/25 07:00 02/20/25 07:00 02/20/25 07:30 Temperature Pulse Rate 109 H 110 H Respiratory Rate 18 17 Blood Pressure Pulse Oximetry 94 94 Oxygen Delivery Method Nasal Cannula BiPAP Oxygen Flow Rate 02/20/25 07:52 02/20/25 07:52 02/20/25 08:00 Temperature Pulse Rate 114 H 114 H Respiratory Rate 20 25 H Blood Pressure 110/55 L Pulse Oximetry 96 99 Oxygen Delivery Method Oxygen Flow Rate 02/20/25 08:30 02/20/25 08:57 02/20/25 12:00 Temperature 96.6 F L Pulse Rate 114 H 114 H Respiratory Rate 29 H 16 Blood Pressure 110/55 L Pulse Oximetry 100 96 Oxygen Delivery Method Oxygen Flow Rate 2 Fraction of Inspired Oxygen 25 Oxygen Delivery Method Nasal Cannula,BiPAP Oxygen Flow Rate 2 Objective Labs 02/20/25 05:01 02/19/25 16:57 Labs: Laboratory Results - last 24 hr 02/19/25 02/19/25 02/19/25 14:54 15:40 16:31 WBC 15.2 H RBC 3.21 L Hgb 8.9 L Hct 26.8 L MCV 83.5 MCH 27.8 MCHC 33.3 RDW 14.3 Plt Count 324 Sodium Potassium Chloride Carbon Dioxide BUN Creatinine Estimated GFR BUN/Creatinine Ratio Glucose POC Whole Bld Glucose 200 H 174 H Calcium Total Bilirubin AST ALT Alkaline Phosphatase Troponin I Total Protein Albumin Globulin Albumin/Globulin Ratio 02/19/25 02/19/25 02/20/25 16:57 21:47 05:01 WBC 9.2 RBC 2.54 L Hgb 7.2 L Hct 21.1 L MCV 83.2 MCH 28.3 MCHC 34.1 RDW 14.5 Plt Count 225 Sodium 135 L Potassium 4.4 Chloride 103 Carbon Dioxide 27 BUN 25 H Creatinine 0.82 Estimated GFR > 60 BUN/Creatinine Ratio 30.5 H Glucose 171 H POC Whole Bld Glucose 248 H Calcium 8.3 L Total Bilirubin < 0.1 L AST 24 ALT 14 Alkaline Phosphatase 72 Troponin I 0.039 H 0.022 Total Protein 6.1 L Albumin 3.0 L Globulin 3.1 Albumin/Globulin Ratio 1.0 02/20/25 02/20/25 07:51 11:33 WBC RBC Hgb Hct MCV MCH MCHC RDW Plt Count Sodium Potassium Chloride Carbon Dioxide BUN Creatinine Estimated GFR BUN/Creatinine Ratio Glucose POC Whole Bld Glucose 244 H 215 H Calcium Total Bilirubin AST ALT Alkaline Phosphatase Troponin I Total Protein Albumin Globulin Albumin/Globulin Ratio [facility] Medical History 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) GERD (gastroesophageal reflux disease) Ankle fracture, right (10/23/24) PVD (peripheral vascular disease) HTN (hypertension) Diabetes NSTEMI (non-ST elevated myocardial infarction) (10/24/24) HLD (hyperlipidemia) Surgical History History of ankle surgery (10/29/24) Hx of cardiac cath (10/26/24) History of amputation of toe Social History household members: children Smoking Status: Never smoker alcohol intake: never Assessment & Plan Time-Based Coding :: [TOTAL MINUTES] spent with patient and on the chart (including review of chart, obtaining history, exam, reviewing outside data, placing orders, documenting exam and treatment plan, and counseling patient) on [DATE]. Quality VTE Deep Vein Thrombosis/Pulmonary Embolism Present on Admission: No
[2025-02-20] MEDS: ATORVASTATIN 20 MG TABLET PO (21:42)
[2025-02-21] VITALS (25 sets, daily range): BP systolic 95–151; BP diastolic 47–81; PULSE 92–109; RESP 13–32; TEMP 36.9–37.5; O2SAT 96–100
[2025-02-21] MEDS: ACETAMINOPHEN 325 MG TABLET 650 MG PO ×4 (03:47→20:26)
[2025-02-21 07:21] LABS: Add Manual Diff / Slide Review NO; Lymphocytes Absolute Auto 2100 /uL (1100-4500); Mean Corpuscular HGB Conc 33.7 % (30-36); Mean Corpuscular Hemoglobin 28.3 PG (26-34); Mean Corpuscular Volume 84.0 fL (80-100); Platelet Count 199 X10^3/uL (150-400)
[2025-02-21 07:23] LABS: Hematocrit 17.3 % (36-46); Hemoglobin 5.8 g/dL (12.0-16.0)
[2025-02-21 07:36] LABS: Blood Urea Nitrogen 18 mg/dL (7-17); Calcium 7.7 mg/dL (8.4-10.2); Carbon Dioxide 29 mmol/L (22-32); Chloride 101 mmol/L (98-107); Estimated Glomerular Filt Rate > 60 mL/min (>60); Glucose 166 mg/dL (70-99); HEMOLYSIS < 15 (0-50); Potassium 3.6 mmol/L (3.4-5.1); Sodium 134 mmol/L (137-145)
[2025-02-21 07:48] LABS: Troponin I < 0.012 ng/mL (0.01-0.034)
--- NOTE | 2025-02-21 08:08 | PM.PN.1 ---
Subjective Subjective Interval history: Okay to hold aspirin from surgical standpoint. Thank you. Exam Vital Signs (past 8 hours): - 02/21/25 00:30 02/21/25 01:00 02/21/25 01:03 Pulse Rate 101 H 102 H 106 H Respiratory Rate 18 22 31 H Blood Pressure Pulse Oximetry 99 99 100 02/21/25 01:03 02/21/25 01:30 02/21/25 02:00 Pulse Rate 109 H 104 H Respiratory Rate 16 15 Blood Pressure 95/47 L Pulse Oximetry 99 100 02/21/25 02:30 02/21/25 03:00 02/21/25 03:30 Pulse Rate 103 H 104 H 102 H Respiratory Rate 16 17 19 Blood Pressure Pulse Oximetry 100 99 99 02/21/25 04:00 02/21/25 04:30 02/21/25 05:00 Pulse Rate 107 H 107 H 100 H Respiratory Rate 32 H 21 14 Blood Pressure Pulse Oximetry 98 99 100 02/21/25 05:30 02/21/25 06:00 02/21/25 06:30 Pulse Rate 97 H 93 H 92 H Respiratory Rate 14 13 15 Blood Pressure Pulse Oximetry 100 100 100 02/21/25 07:00 Pulse Rate 94 H Respiratory Rate 18 Blood Pressure Pulse Oximetry 100 Fraction of Inspired Oxygen 25 Oxygen Delivery Method Nasal Cannula,BiPAP Oxygen Flow Rate 2 Objective Labs 02/21/25 07:10 02/21/25 07:10 Labs: Laboratory Results - last 24 hr 02/20/25 02/20/25 02/20/25 11:33 12:13 16:52 WBC RBC Hgb Hct MCV MCH MCHC RDW Plt Count Neut % (Auto) Lymph % (Auto) [place] % (Auto) Eos % (Auto) Baso % (Auto) Neut # (Auto) Lymph # (Auto) [place] # (Auto) Eos # (Auto) Baso # (Auto) Sodium Potassium Chloride Carbon Dioxide BUN Creatinine Estimated GFR BUN/Creatinine Ratio Glucose POC Whole Bld Glucose 215 H 241 H 219 H Calcium Troponin I Crossmatch 02/20/25 02/21/25 02/21/25 20:48 07:10 07:40 WBC 10.4 RBC 2.06 L Hgb 5.8 L* Hct 17.3 L* MCV 84.0 MCH 28.3 MCHC 33.7 RDW 14.3 Plt Count 199 Neut % (Auto) 66.6 Lymph % (Auto) 20.3 L [place] % (Auto) 9.3 Eos % (Auto) 3.2 Baso % (Auto) 0.6 Neut # (Auto) 6900 Lymph # (Auto) 2100 [place] # (Auto) 1000 H Eos # (Auto) 300 Baso # (Auto) 100 Sodium 134 L Potassium 3.6 Chloride 101 Carbon Dioxide 29 BUN 18 H Creatinine 0.76 Estimated GFR > 60 BUN/Creatinine Ratio 23.7 H Glucose 166 H POC Whole Bld Glucose 175 H Calcium 7.7 L Troponin I < 0.012 Crossmatch See Detail [facility] Medical History 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) GERD (gastroesophageal reflux disease) Ankle fracture, right (10/23/24) PVD (peripheral vascular disease) HTN (hypertension) Diabetes NSTEMI (non-ST elevated myocardial infarction) (10/24/24) HLD (hyperlipidemia) Surgical History History of ankle surgery (10/29/24) Hx of cardiac cath (10/26/24) History of amputation of toe Social History household members: children alcohol intake: never Assessment & Plan Time-Based Coding :: [TOTAL MINUTES] spent with patient and on the chart (including review of chart, obtaining history, exam, reviewing outside data, placing orders, documenting exam and treatment plan, and counseling patient) on [DATE]. Quality VTE Deep Vein Thrombosis/Pulmonary Embolism Present on Admission: No
[2025-02-21] MEDS: INSULIN LISPRO 100 UNIT/ML 3ML VIAL SUBCUT ×6 (09:03→17:50)
[2025-02-21] MEDS: DOCUSATE 100 MG CAPSULE PO (09:10)
[2025-02-21] MEDS: GABAPENTIN 100 MG CAPSULE 200 MG PO ×3 (09:10→20:21)
[2025-02-21] MEDS: ASPIRIN EC 81 MG TABLET PO (09:10)
[2025-02-21] MEDS: LOSARTAN 50 MG TABLET 100 MG PO (09:11)
[2025-02-21] MEDS: METOPROLOL IR 25 MG TABLET PO (09:11)
[2025-02-21] MEDS: INSULIN GLARGINE 100 UNIT/ML 3ML PEN 30 UNIT SUBCUT (09:11)
[2025-02-21] MEDS: DOXYCYCLINE HYCLATE 100 MG TABLET PO ×2 (09:11→20:21)
--- NOTE | 2025-02-21 10:20 | PT-IP ANOTE ---
PT eval order received and EMR reviewed. pt with Hgb of 5.8 and Hct: 17.3. PT eval on hold today. pt will be receiving blood transfusion. will wait for new H&H result.
--- NOTE | 2025-02-21 10:21 | PC.NURSE ---
Patients H&H 5.8 and 17.3, t&c ordered and patients 1st unit of prbcs infusing, started at 0854. She is tolerating this well. R.ankle has a wound vac with a splinted cast in place and arlen wrap. PPx2, and feet are warm. She is able to move her toes. VSS. She ate some breakfast and is resting now. There is not much drainage coming out of wound vac into canister.
[2025-02-21 13:12] LABS: Hematocrit 21.5 % (36-46); Hemoglobin 7.1 g/dL (12.0-16.0)
--- NOTE | 2025-02-21 14:58 | CM.DPNOTE ---
DCP note ORE MINER reviewed EMR per provider, pt's H&H dropped low this morning. PT eval on hold for now. pt pretty sleepy throughout day. getting a few units of blood. per RN, pt's wound vac delivered no issues. P: anticipate eventual dc home when medically stable pending therapy recs as well. [facility] and OP wound care currently following. will continue to follow closely for DCP Coordination AMELIA Hinds
--- NOTE | 2025-02-21 18:53 | P.PN_ITS ---
Subjective Subjective Interval history: 60-year-old female with underlying hypertension, diabetes mellitus type 2, hyperlipidemia, history of non ST elevation [place] who was admitted with a right charcot neuropathic ankle and plan for surgical fusion. Postoperatively, she developed hypotension and hospitalist service was consulted for treatment. She reports her pain is well controlled with combination of IV and oral medication. Her portable wound VAC is slated to arrive today. Her hemoglobin was down to 7.2 yesterday from 11.9 preop, 8.9 on the day of surgery. This morning, it is down to 5.9. Exam Vital Signs (past 8 hours): - 02/21/25 11:52 02/21/25 12:00 02/21/25 15:50 Temperature 99.1 F 99.5 F 99.0 F Pulse Rate 100 H 102 H 99 H Respiratory Rate 20 21 18 Blood Pressure 151/81 H 104/53 L 115/58 L Pulse Oximetry 100 Oxygen Flow Rate 3 02/21/25 16:00 Temperature 99.5 F Pulse Rate 97 H Respiratory Rate 17 Blood Pressure 128/62 Pulse Oximetry 98 Oxygen Flow Rate 2 Fraction of Inspired Oxygen 25 Oxygen Delivery Method Nasal Cannula,BiPAP Oxygen Flow Rate 2 Narrative Exam Narrative: GEN: Very pleasant middle-aged female, Alert and oriented x 3, NAD HEENT:NC, Face symmetric CHEST: Respiratory excursions symmetric, coarse but CTAB CV: RRR, no M/R/G ABD: Soft, obese, tender in the right lower quadrant, otherwise nontender throughout/ND, BT present in all 4 quadrants, body habitus limits exam EXTR: warm, well perfused, no C/C/E, right lower extremity postop dressings in place SKIN: warm and dry, no rash NEURO: Alert and oriented x 3, nonfocal Objective Labs 02/21/25 13:02 02/21/25 07:10 Labs: Laboratory Results - last 24 hr 02/20/25 02/21/25 02/21/25 20:48 07:10 07:40 WBC 10.4 RBC 2.06 L Hgb 5.8 L* Hct 17.3 L* MCV 84.0 MCH 28.3 MCHC 33.7 RDW 14.3 Plt Count 199 Neut % (Auto) 66.6 Lymph % (Auto) 20.3 L [place] % (Auto) 9.3 Eos % (Auto) 3.2 Baso % (Auto) 0.6 Neut # (Auto) 6900 Lymph # (Auto) 2100 [place] # (Auto) 1000 H Eos # (Auto) 300 Baso # (Auto) 100 Sodium 134 L Potassium 3.6 Chloride 101 Carbon Dioxide 29 BUN 18 H Creatinine 0.76 Estimated GFR > 60 BUN/Creatinine Ratio 23.7 H Glucose 166 H POC Whole Bld Glucose 175 H Calcium 7.7 L Troponin I < 0.012 Blood Type B Positive Antibody Screen Negative Crossmatch See Detail 02/21/25 02/21/25 02/21/25 08:20 12:08 13:02 WBC RBC Hgb 7.1 L Hct 21.5 L MCV MCH MCHC RDW Plt Count Neut % (Auto) Lymph % (Auto) [place] % (Auto) Eos % (Auto) Baso % (Auto) Neut # (Auto) Lymph # (Auto) [place] # (Auto) Eos # (Auto) Baso # (Auto) Sodium Potassium Chloride Carbon Dioxide BUN Creatinine Estimated GFR BUN/Creatinine Ratio Glucose POC Whole Bld Glucose 165 H 180 H Calcium Troponin I Blood Type Antibody Screen Crossmatch 02/21/25 16:49 WBC RBC Hgb Hct MCV MCH MCHC RDW Plt Count Neut % (Auto) Lymph % (Auto) [place] % (Auto) Eos % (Auto) Baso % (Auto) Neut # (Auto) Lymph # (Auto) [place] # (Auto) Eos # (Auto) Baso # (Auto) Sodium Potassium Chloride Carbon Dioxide BUN Creatinine Estimated GFR BUN/Creatinine Ratio Glucose POC Whole Bld Glucose 199 H Calcium Troponin I Blood Type Antibody Screen Crossmatch [facility] Medical History 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 Postoperative anemia Hemoglobin is now 5.9. Will transfuse 1 unit of blood and recheck her hemoglobin. If she remains symptomatic or her hemoglobin is below 7, will plan to transfuse a 2nd unit. She did have documented 150 cc of blood loss intraoperatively. Postoperatively she was hypotensive and required pressors briefly. Reportedly, her surgery took 6 hours. No other source of blood loss noted. She has receiving a daily aspirin which will be held for now. 2. Diabetes mellitus type 2, insulin requiring Blood sugars are gradually improving and have ranged from the 160s to 199 range today. 3. Obstructive sleep apnea with use of noninvasive ventilation at home Resume her usual treatment at home. 4. Hypertension Continue losartan, metoprolol, hydrochlorothiazide. She is normotensive presently 5. Class 3 obesity BMI is 44.6. Would benefit from weight reduction 6. Postoperative day 2 from tibiotalar arthrodesis and talocalcaneal arthrodesis. Anticipate portable wound VAC arriving today as noted. Ongoing management per Podiatry. Code status Full Prophylaxis Chemical prophylaxis contraindicated in the setting of her severe postoperative anemia Disposition Possibly home tomorrow after PT assessment. Time-Based Coding :: [TOTAL MINUTES] spent with patient and on the chart (including review of chart, obtaining history, exam, reviewing outside data, placing orders, documenting exam and treatment plan, and counseling patient) on [DATE]. Quality VTE Deep Vein Thrombosis/Pulmonary Embolism Present on Admission: No
[2025-02-21] MEDS: ATORVASTATIN 20 MG TABLET PO (20:21)
[2025-02-21] MEDS: SENNOSIDES 8.6 MG TABLET 17.2 MG PO (20:21)
[2025-02-21] MEDS: INSULIN GLARGINE 100 UNIT/ML 3ML PEN 28 UNIT SUBCUT (20:22)
[2025-02-22] VITALS (30 sets, daily range): BP systolic 88–133; BP diastolic 51–65; PULSE 80–107; RESP 11–43; TEMP 36.3–36.7; O2SAT 83–100
[2025-02-22] MEDS: ACETAMINOPHEN 325 MG TABLET 650 MG PO ×4 (03:37→22:27)
[2025-02-22 05:22] LABS: Add Manual Diff / Slide Review NO; Hematocrit 24.5 % (36-46); Hemoglobin 8.5 g/dL (12.0-16.0); Lymphocytes Absolute Auto 2100 /uL (1100-4500); Mean Corpuscular HGB Conc 34.6 % (30-36); Mean Corpuscular Hemoglobin 29.1 PG (26-34); Mean Corpuscular Volume 84.1 fL (80-100); Platelet Count 203 X10^3/uL (150-400)
[2025-02-22 05:24] LABS: Blood Urea Nitrogen 20 mg/dL (7-17); Calcium 7.9 mg/dL (8.4-10.2); Carbon Dioxide 29 mmol/L (22-32); Chloride 100 mmol/L (98-107); Estimated Glomerular Filt Rate > 60 mL/min (>60); Glucose 191 mg/dL (70-99); HEMOLYSIS < 15 (0-50); Potassium 4.0 mmol/L (3.4-5.1); Sodium 132 mmol/L (137-145)
[2025-02-22] MEDS: INSULIN LISPRO 100 UNIT/ML 3ML VIAL SUBCUT ×4 (08:31→18:00)
[2025-02-22] MEDS: INSULIN GLARGINE 100 UNIT/ML 3ML PEN 28 UNIT SUBCUT ×2 (08:32→22:26)
[2025-02-22] MEDS: LOSARTAN 50 MG TABLET 100 MG PO (08:45)
[2025-02-22] MEDS: GABAPENTIN 100 MG CAPSULE 200 MG PO ×3 (08:45→19:53)
[2025-02-22] MEDS: DOCUSATE 100 MG CAPSULE PO (08:45)
[2025-02-22] MEDS: DOXYCYCLINE HYCLATE 100 MG TABLET PO ×2 (08:45→19:53)
[2025-02-22] MEDS: SENNOSIDES 8.6 MG TABLET 17.2 MG PO (08:45)
[2025-02-22] MEDS: SODIUM CHLORIDE 0.9% FLUSH 10 ML IV ×2 (08:46→22:28)
[2025-02-22] MEDS: METOPROLOL IR 25 MG TABLET PO (08:46)
[2025-02-22] MEDS: INSULIN LISPRO 100 UNIT/ML 3ML VIAL 7 UNIT SUBCUT ×2 (12:17→17:59)
--- NOTE | 2025-02-22 15:42 | CM.DPNOTE ---
DCP note DONATIONS ATTENDANT reviewed EMR per PT, thinks home with HH vs SNF appropriate. pt still very deconditioned and able to mobilize at baseline just gets exhausted. per RN/chart, BP still pretty low. attempted to meet with pt, sleeping allowed to rest. spoke with dtr Eugenia on the phone. plans to visit tomorrow to see if she thinks family will be able to manage her at home. admittedly, barrier to SNF is [facility]- only contracted facility [facility]? will f/u with them tomorrow P: dc home with [facility] and family when medically stable vs to SNF? CM team will continue to follow closely for DCP coordination AMELIA Hinds
--- NOTE | 2025-02-22 16:32 | PT.IIE ---
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) Charcot's joint, right ankle and foot (02/19/25) Surgery Performed Operation Date: 02/19/25 07:45 Actual Procedures p tibiotalar fusion, ankle charcots joint and talocalcaneal fusion(Right) - Wellington Nelson DPM Surgical History (Last Reviewed 02/19/25 @ 16:51 by Andrea Paul MD) History of amputation of toe History of ankle surgery (10/29/24) Hx of cardiac cath (10/26/24) Medical History (Last Reviewed 02/19/25 @ 16:51 by Andrea Paul MD) Ankle fracture, right (10/23/24) Diabetes GERD (gastroesophageal reflux disease) HLD (hyperlipidemia) HTN (hypertension) NSTEMI (non-ST elevated myocardial infarction) (10/24/24) 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) PVD (peripheral vascular disease) Physical Therapy Inpatient Evaluation/Re-Eval M1 PT/OT-IP Prior Functional Status Start: 02/22/25 14:17 Freq: NEEDED Status: Active Protocol: Document 02/22/25 14:54 [facility] (Rec: 02/22/25 15:18 [facility] [id number]) Medical Review Prior Functional Status Medical History Yes Reviewed Diet/Fluid Regular Consistency Communication communication with career development consultant prior to eval regarding pt's daughter being a nurse and will assist in caregiving for her mom Mobility and Gait pt was ambulatory prior to her surgery Social History Household Members children Living Arrangements House Home Equipment Front Wheel Walker,Manual Wheelchair M2 PT-IP Current Condition Start: 02/22/25 14:17 Freq: NEEDED Status: Active Protocol: Document 02/22/25 14:54 [facility] (Rec: 02/22/25 15:18 [facility] [id number]) Physical Therapy Current Condition Current Condition Evaluation Date 02/22/25 Treatment Diagnosis Right ankle fusion, pt became hypotensive postoperatively Onset Date 02/19/25 M3 PT-IP Subjective Start: 02/22/25 14:17 Freq: NEEDED Status: Active Protocol: Document 02/22/25 14:54 [facility] (Rec: 02/22/25 15:18 [facility] [id number]) Subjective Physical Therapy Visit Type Type Initial Evaluation Visit Start Time 14:15 Visit Stop Time 14:45 Notes non WB surgicl limb (right side) Physical Therapy Visit Comments Patient Comments pt's primary language is Georgian, she understands a little Turkmen M4 PT-IP Mobility and Gait Start: 02/22/25 14:17 Freq: NEEDED Status: Active Protocol: Document 02/22/25 14:54 [facility] (Rec: 02/22/25 15:18 [facility] [id number]) PT-Transfer Assessment Sit to and From Stand Sit to and from Moderate Assistance Stand Equipment Transfer Assistive Gait Belt,Front Wheeled Walker Device Transfers Transfer Destination Chair Transfer Technique Stand Step Pivot Transfer Ability Level of Assist Moderate Assistance Comments Mobility Comments pt was able to stand with mod A and fww she is non WB on the right, she was able to stand step pivot towards bed with mod A but she had a difficult time backing up to bed to sit. I did call for assistance and she was max A x 2 to assist her to bed from a seated position. She required lift of her legs to get her into bed. Once in bed she was able to assist a little with scooting up in bed using left leg. She becomes weak quickly and fatigued with activity PT-Balance Assessment Sitting Balance and Reactions Static Sitting Fair Balance Ability Dynamic Sitting Fair Balance Ability Standing Balance and Reactions Static Standing Fair Balance Ability Dynamic Standing Fair Balance Ability M5 PT-IP Objective Assessments Start: 02/22/25 14:17 Freq: NEEDED Status: Active Protocol: Document 02/22/25 14:54 [facility] (Rec: 02/22/25 15:18 [facility] [id number]) Orientation Orientation/Cognition Level of Alertness Alert Orientation Name,Place,Situation Language Function Turkmen as Second Language Ability Gross Range of Motion Upper Extremity ROM Assessment Within Functional Limits Lower Extremity ROM Assessment Right Impaired Impairments s/p right ankle fusion Strength Upper Extremity Strength Assessment Within Functional Limits Lower Extremity Strength Assessment Right Impaired Ankle s/p ankle fusion Comments Strength Comments right ankle is in a posterior splint and cast padding M6 PT-IP Treatment Start: 02/22/25 14:17 Freq: NEEDED Status: Active Protocol: Document 02/22/25 14:54 [facility] (Rec: 02/22/25 15:18 [facility] [id number]) Physical Therapy Treatment Education Education Provided Safety M7 PT-IP Assessment and Plan Start: 02/22/25 14:17 Freq: NEEDED Status: Active Protocol: Document 02/22/25 14:54 [facility] (Rec: 02/22/25 15:18 [facility] [id number]) PT Summary Assessment and Plan Potential Rehabilitation Fair Potential Status of Condition Evolving at Evaluation Summary Impairments Strength,Balance,Bed Mobility,Transfers,Activity Tolerance Assessment Summary 60 year old yakut speaking female with underlying hypertension, type II diabetes, hyperlipidemia, history of ID admitted with a right charcot neuropathic ankle and plan for surgical fusion. Postoperatively she developed hypotension and hospitalist was consulted. Admit date 02/19/25. Pt was sitting in bedside chair at time of eval. She agreed to PT. Right ankle is wrapped in cast and posterior splint and she is non WB to surgical limb. Sit to stand was mod A, transfer to bed was max A and nurse was called to help mobilize pt to bed as she fatigued quickly when attempting to sit. Max A x 2 with assistance of her legs to return to bed. She was able to assist a little pressing up in bed with left LE. Due to patients fatigue and hypotension post surgery she may be a good candidate for SNF rehab prior to return home with home health. Further assessment needed. Pt does have wheel chair and walker for home . Goals Bed Mobility Goal Minimal Assistance Transfer Goal Contact Guard Assistance Gait Goal Contact Guard Assistance Days to Meet Goals 10 Frequency of Treatment Frequency Of Once a Day Treatment Treatment Plan Physical Therapy Bed Mobility Training,Transfer Training,Post Op Treatment Plan Education Weight Bearing Status Weight Bearing Non-Weight Bearing Status Allowed Weight non WB RLE Bearing Amount ( enter % or #) (%) Recommendations To Nursing Amount of Assist 1 Person Assist Needed Discharge Recommendations Other Discharge SNF rehab verses home with assist, needs further Recommendations assessment Equipment Needed for pt has wheel chair and fww for home as well Home Before Discharge Transportation Needs Wheelchair/Cabulance at Discharge
--- NOTE | 2025-02-22 17:51 | PM.PN.1 ---
Subjective Subjective Interval history: 60-year-old female with underlying hypertension, diabetes mellitus type 2, hyperlipidemia, history of non ST elevation HI who was admitted with a right charcot neuropathic ankle and plan for surgical fusion. Postoperatively, she developed hypotension and hospitalist service was consulted for treatment. Yesterday, her hemoglobin dropped down to 5.9 from 7.2 the prior day, 8.9 on the day of surgery, an 11.9 preoperatively. She received a total of 2 units of packed red blood cells. Today, she notes that she is feeling improved after the transfusion. She states that she has not yet moved her bowels. The portable wound VAC did arrive yesterday and will be available when she is ready for discharge. She does have a Arrington catheter in place and feels ready to have that removed. Exam Vital Signs (past 8 hours): - 02/22/25 11:00 02/22/25 12:00 Temperature 97.4 F L Pulse Rate 94 H Respiratory Rate 18 Blood Pressure 88/57 L Pulse Oximetry 95 Oxygen Flow Rate 0 Fraction of Inspired Oxygen 25 Oxygen Delivery Method Room Air Oxygen Flow Rate 0 Narrative Exam Narrative: GEN: Very pleasant middle-aged female, Alert and oriented x 3, NAD HEENT:NC, Face symmetric CHEST: Respiratory excursions symmetric, coarse but CTAB CV: RRR, no M/R/G ABD: Soft, obese, tender in the right lower quadrant, otherwise nontender throughout/ND, BT present in all 4 quadrants, body habitus limits exam EXTR: warm, well perfused, no C/C/E, right lower extremity postop dressings in place SKIN: warm and dry, no rash NEURO: Alert and oriented x 3, nonfocal Objective Labs 02/22/25 04:20 02/22/25 04:20 Labs: Laboratory Results - last 24 hr 02/21/25 02/21/25 02/22/25 07:40 19:55 04:20 WBC 11.0 RBC 2.91 L Hgb 8.5 L Hct 24.5 L MCV 84.1 MCH 29.1 MCHC 34.6 RDW 13.9 Plt Count 203 Neut % (Auto) 68.5 Lymph % (Auto) 19.4 L [place] % (Auto) 7.1 Eos % (Auto) 4.7 H Baso % (Auto) 0.3 Neut # (Auto) 7500 H Lymph # (Auto) 2100 [place] # (Auto) 800 Eos # (Auto) 500 H Baso # (Auto) 0 Sodium 132 L Potassium 4.0 Chloride 100 Carbon Dioxide 29 BUN 20 H Creatinine 0.84 Estimated GFR > 60 BUN/Creatinine Ratio 23.8 H Glucose 191 H POC Whole Bld Glucose 187 H Calcium 7.9 L Crossmatch See Detail 02/22/25 02/22/25 08:18 12:20 WBC RBC Hgb Hct MCV MCH MCHC RDW Plt Count Neut % (Auto) Lymph % (Auto) [place] % (Auto) Eos % (Auto) Baso % (Auto) Neut # (Auto) Lymph # (Auto) [place] # (Auto) Eos # (Auto) Baso # (Auto) Sodium Potassium Chloride Carbon Dioxide BUN Creatinine Estimated GFR BUN/Creatinine Ratio Glucose POC Whole Bld Glucose 164 H 227 H Calcium Crossmatch [facility] Medical History 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 Postoperative anemia Hemoglobin was down to 5.9 yesterday. It is up to 8.5 today after 2 units of packed red blood cells. She had documented a 150 cc of estimated blood loss during surgery. Aspirin has been held. She does have serosanguineous drainage noted in the wound VAC. Discussed with her the importance of monitoring for acute blood loss in the wound VAC when she returns home. 2. Diabetes mellitus type 2, insulin requiring Blood sugars have ranged from 164 to 187 overnight. She continues Lantus 28 units b.i.d. and sliding scale insulin. 3. Obstructive sleep apnea with use of noninvasive ventilation at home Resume her usual treatment at home. 4. Hypertension Blood pressure is normotensive. Her tachycardia has resolved as well since her transfusion. Continue losartan, metoprolol, hydrochlorothiazide. 5. Class 3 obesity BMI is 44.6. Would benefit from weight reduction 6. Postoperative day 3 from tibiotalar arthrodesis and talocalcaneal arthrodesis. Portable Wound VAC arrived yesterday. Discussed importance of monitoring the drainage in the wound VAC for evidence of active bleeding or infectious appearing drainage. Ongoing management per Podiatry. Code status Full Prophylaxis Chemical prophylaxis contraindicated in the setting of her severe postoperative anemia Disposition Will DC the Arrington catheter and ensure patient can void as well as await physical therapy assessment to ensure she is safe for discharge today. Time-Based Coding :: [TOTAL MINUTES] spent with patient and on the chart (including review of chart, obtaining history, exam, reviewing outside data, placing orders, documenting exam and treatment plan, and counseling patient) on [DATE]. Quality VTE Deep Vein Thrombosis/Pulmonary Embolism Present on Admission: No
[2025-02-22 18:17] LABS: Hematocrit 26.1 % (36-46); Hemoglobin 8.8 g/dL (12.0-16.0)
[2025-02-22] MEDS: ATORVASTATIN 20 MG TABLET PO (19:53)
[2025-02-22] MEDS: SODIUM CHLORIDE 0.9% 1,000 ML 100 ML IV (19:55)
[2025-02-23] VITALS (49 sets, daily range): BP systolic 103–187; BP diastolic 54–81; PULSE 69–100; RESP 11–55; TEMP 35.9–36.5; O2SAT 79–100
[2025-02-23 04:37] LABS: Add Manual Diff / Slide Review NO; Hematocrit 22.5 % (36-46); Hemoglobin 7.6 g/dL (12.0-16.0); Lymphocytes Absolute Auto 2200 /uL (1100-4500); Mean Corpuscular HGB Conc 34.0 % (30-36); Mean Corpuscular Hemoglobin 28.7 PG (26-34); Mean Corpuscular Volume 84.4 fL (80-100); Platelet Count 233 X10^3/uL (150-400)
[2025-02-23 04:50] LABS: Blood Urea Nitrogen 28 mg/dL (7-17); Calcium 8.2 mg/dL (8.4-10.2); Carbon Dioxide 28 mmol/L (22-32); Chloride 101 mmol/L (98-107); Estimated Glomerular Filt Rate > 60 mL/min (>60); Glucose 118 mg/dL (70-99); HEMOLYSIS < 15 (0-50); Magnesium 1.6 mg/dL (1.6-2.3); Potassium 3.5 mmol/L (3.4-5.1); Sodium 133 mmol/L (137-145)
[2025-02-23] MEDS: SODIUM CHLORIDE 0.9% 1,000 ML 100 ML IV (06:46)
--- NOTE | 2025-02-23 08:08 | P.PN_ITS ---
Subjective Subjective Interval history: Summary: S: She was doing well, denies. Her hemoglobin did drop to 7.2 overnight. She was still having some output with a wound VAC. Dr. Baptiste, podiatry, we will change the wound VAC tonight. She denies pain. O: NAD, alert and oriented. Fluent speech. Lungs are clear, normal rate and effort. Heart is regular, no murmur gallop or rub. Abdomen is soft, non distended. Extremities are free of edema. Right foot is wrapped, there is some ecchymosis over the toes, they are warm. Wound VAC is in place. A/P: 1. Postoperative anemia (blood loss), active. Hemoglobin was down to 5.9 02/21. It is up to 8.5 02/22 after 2 units of packed red blood cells. She had documented a 150 cc of estimated blood loss during surgery. Aspirin has been held. She does have serosanguineous drainage noted in the wound VAC. Discussed with her the importance of monitoring for acute blood loss in the wound VAC when she returns home. 2. Diabetes mellitus type 2, insulin requiring, stable. Blood sugars have ranged from 164 to 187 overnight. She continues Lantus 28 units b.i.d. and sliding scale insulin. 3. Obstructive sleep apnea with use of noninvasive ventilation at home, stable. Resume her usual treatment at home. 4. Hypertension, stable. Blood pressure is normotensive. Her tachycardia has resolved as well since her transfusion. Continue losartan, metoprolol, hydrochlorothiazide. 5. Class 3 obesity, stable. BMI is 44.6. Would benefit from weight reduction 6. Postoperative day 3 from tibiotalar arthrodesis and talocalcaneal arthrodesis. Stable. Portable Wound VAC arrived yesterday. Discussed importance of monitoring the drainage in the wound VAC for evidence of active bleeding or infectious appearing drainage. Ongoing management per Podiatry. PLAN: -recheck hemoglobin this afternoon, anticipate probable transfusion. -wound VAC change tonight. -possible discharge on February 24. Code status Full Exam Vital Signs (past 8 hours): - 02/23/25 04:00 Temperature 97.6 F Pulse Rate 93 H Respiratory Rate 20 Blood Pressure 128/60 Pulse Oximetry 93 Oxygen Flow Rate 3 Fraction of Inspired Oxygen 25 Oxygen Delivery Method Nasal Cannula Oxygen Flow Rate 3 Objective Labs 02/23/25 04:30 02/23/25 04:30 Labs: Laboratory Results - last 24 hr 02/22/25 02/22/25 02/22/25 08:18 12:20 17:59 WBC RBC Hgb Hct MCV MCH MCHC RDW Plt Count Neut % (Auto) Lymph % (Auto) [place] % (Auto) Eos % (Auto) Baso % (Auto) Neut # (Auto) Lymph # (Auto) [place] # (Auto) Eos # (Auto) Baso # (Auto) Sodium Potassium Chloride Carbon Dioxide BUN Creatinine Estimated GFR BUN/Creatinine Ratio Glucose POC Whole Bld Glucose 164 H 227 H 196 H Calcium Magnesium 02/22/25 02/22/25 02/23/25 18:05 21:20 04:30 WBC 10.0 RBC 2.66 L Hgb 8.8 L 7.6 L Hct 26.1 L 22.5 L MCV 84.4 MCH 28.7 MCHC 34.0 RDW 14.2 Plt Count 233 Neut % (Auto) 65.6 Lymph % (Auto) 21.7 L [place] % (Auto) 7.1 Eos % (Auto) 5.0 H Baso % (Auto) 0.6 Neut # (Auto) 6500 Lymph # (Auto) 2200 [place] # (Auto) 700 Eos # (Auto) 500 H Baso # (Auto) 100 Sodium 133 L Potassium 3.5 Chloride 101 Carbon Dioxide 28 BUN 28 H Creatinine 0.81 Estimated GFR > 60 BUN/Creatinine Ratio 34.6 H Glucose 118 H POC Whole Bld Glucose 177 H Calcium 8.2 L Magnesium 1.6 02/23/25 07:34 WBC RBC Hgb Hct MCV MCH MCHC RDW Plt Count Neut % (Auto) Lymph % (Auto) [place] % (Auto) Eos % (Auto) Baso % (Auto) Neut # (Auto) Lymph # (Auto) [place] # (Auto) Eos # (Auto) Baso # (Auto) Sodium Potassium Chloride Carbon Dioxide BUN Creatinine Estimated GFR BUN/Creatinine Ratio Glucose POC Whole Bld Glucose 109 H Calcium Magnesium [facility] Medical History 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) GERD (gastroesophageal reflux disease) Ankle fracture, right (10/23/24) PVD (peripheral vascular disease) HTN (hypertension) Diabetes NSTEMI (non-ST elevated myocardial infarction) (10/24/24) HLD (hyperlipidemia) Surgical History History of ankle surgery (10/29/24) Hx of cardiac cath (10/26/24) History of amputation of toe Social History household members: children alcohol intake: never Assessment & Plan Time-Based Coding :: [TOTAL MINUTES] spent with patient and on the chart (including review of chart, obtaining history, exam, reviewing outside data, placing orders, documenting exam and treatment plan, and counseling patient) on [DATE]. Quality VTE Deep Vein Thrombosis/Pulmonary Embolism Present on Admission: No
[2025-02-23] MEDS: ACETAMINOPHEN 325 MG TABLET 650 MG PO ×2 (08:53→21:33)
[2025-02-23] MEDS: LOSARTAN 50 MG TABLET 100 MG PO (08:54)
[2025-02-23] MEDS: METOPROLOL IR 25 MG TABLET PO (08:54)
[2025-02-23] MEDS: DOXYCYCLINE HYCLATE 100 MG TABLET PO ×2 (08:54→20:27)
[2025-02-23] MEDS: GABAPENTIN 100 MG CAPSULE 200 MG PO ×2 (08:54→20:27)
[2025-02-23] MEDS: SODIUM CHLORIDE 0.9% FLUSH 10 ML IV ×2 (08:55→20:29)
[2025-02-23] MEDS: INSULIN LISPRO 100 UNIT/ML 3ML VIAL 7 UNIT SUBCUT ×3 (09:00→17:48)
[2025-02-23] MEDS: INSULIN GLARGINE 100 UNIT/ML 3ML PEN 28 UNIT SUBCUT ×2 (09:01→20:39)
--- NOTE | 2025-02-23 10:11 | DIET.CONS ---
Dietary Consultation Note Admission Date: 02/19/2025 06:11 Assessment: 60 y F admitted post op ankle ORIF. Dietitian consulted for high BG. Last A1c 7.3% on 12/17/24, hx of taking glipizide, novolin, mounjaro. POC BG this morning 109. Recent insulin routine 28 units glargine BID and 7 units lispro Ht: 152.4 cm Wt: 103.5 kg BMI: 44.5 UBW: 100-120 kg Last BM: 02/22/25 (02/22/25 18:23) MNA: 12 Damian Score: 19 Diet: 02/20/25 Breakfast Carbohydrate Consistent Diet Diet Modifications: Carbohydrate level: Medium (3 CHO) Reflex DM orders: No Food Texture: Level 7 - Regular Liquid Consistency: Level 0 - Thin Nutrition Percent Meal Consumed 75% 02/22/25 18:23 Percent Meal Consumed 75% 02/21/25 13:00 Labs: RBC 2.66 X10^6/uL (4.0-5.2) L 02/23/25 04:30 Hgb 7.6 g/dL (12.0-16.0) L 02/23/25 04:30 Hct 22.5 % (36-46) L 02/23/25 04:30 Creatinine 0.81 mg/dL (0.52-1.04) 02/23/25 04:30 EER: 30-45 g CHO at meals Monitoring/Evaluations: monitoring BG Electronically Signed by: Meredith Waller 02/23/25 10:11 Clinical Dietitian [address] [id number]
--- NOTE | 2025-02-23 12:30 | PT.IPTN ---
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) Charcot's joint, right ankle and foot (02/19/25) Surgery Performed Operation Date: 02/19/25 07:45 Actual Procedures p tibiotalar fusion, ankle charcots joint and talocalcaneal fusion(Right) - Wellington Nelson DPM Physical Therapy Treatment Note M2 PT-IP Current Condition Start: 02/22/25 14:17 Freq: NEEDED Status: Active Protocol: Document 02/22/25 14:54 [facility] (Rec: 02/22/25 15:18 [facility] [id number]) Physical Therapy Current Condition Current Condition Evaluation Date 02/22/25 Treatment Diagnosis Right ankle fusion, pt became hypotensive postoperatively Onset Date 02/19/25 M3 PT-IP Subjective Start: 02/22/25 14:17 Freq: NEEDED Status: Active Protocol: Document 02/23/25 12:23 KJ (Rec: 02/23/25 12:29 KJ [id number]) Subjective Physical Therapy Visit Type Type Treatment Note Visit Start Time 11:56 Visit Stop Time 12:20 Physical Therapy Visit Comments Patient Comments no complaints offered. Daughter in room to translate M4 PT-IP Mobility and Gait Start: 02/22/25 14:17 Freq: NEEDED Status: Active Protocol: Document 02/23/25 12:23 KJ (Rec: 02/23/25 12:29 KJ [id number]) PT-Bed Mobility Assessment Rolling Type of Rolling Roll to Left Level of Assist Moderate Assistance Supine to Sit Supine to Sit Moderate Assistance Scooting Scooting to Edge of Moderate Assistance Bed PT-Transfer Assessment Sit to and From Stand Sit to and from Contact Guard Assistance Stand Equipment Transfer Assistive Gait Belt,Front Wheeled Walker Device Transfers Transfer Destination Chair Transfer Technique Stand Pivot Transfer Ability Level of Assist Contact Guard Assistance Comments Mobility Comments maintained nwb R Gait Assessment Comments Gait Comments Gait training deferred due to nwb status, medical status PT-Balance Assessment Sitting Balance and Reactions Static Sitting Normal Balance Ability Dynamic Sitting Good Balance Ability Standing Balance and Reactions Static Standing Good Balance Ability Dynamic Standing Good Balance Ability M5 PT-IP Objective Assessments Start: 02/22/25 14:17 Freq: NEEDED Status: Active Protocol: Document 02/23/25 12:23 KJ (Rec: 02/23/25 12:29 KJ [id number]) Orientation Orientation/Cognition Level of Alertness Alert Orientation Name,Age,Birthday,Month,Date,Year,Day of Week,Place, Situation Language Function Solomon Islander as Second Language Ability Safety Awareness Understands Safety Issues Memory Description No Deficits Noted Comments Pt speaks Estonian and has her daughter here to translate. Gross Range of Motion Upper Extremity ROM Assessment Within Functional Limits Lower Extremity ROM Assessment Right Impaired M6 PT-IP Treatment Start: 02/22/25 14:17 Freq: NEEDED Status: Active Protocol: Document 02/23/25 12:23 KJ (Rec: 02/23/25 12:29 KJ [id number]) Physical Therapy Treatment Exercises Exercises Ankle Pumps Other Treatments Other Treatment encouraged toe movement in R Performed M7 PT-IP Assessment and Plan Start: 02/22/25 14:17 Freq: NEEDED Status: Active Protocol: Document 02/23/25 12:23 KJ (Rec: 02/23/25 12:29 KJ [id number]) PT Summary Assessment and Plan Potential Rehabilitation Excellent Potential Status of Condition Evolving at Evaluation Summary Impairments Bed Mobility,Transfers,Gait Assessment Summary Pt was using wheelchair prior to this surgery due to injury which occurred in October. She may have the potential for increasing her mobility and transitioning out of the wheelchair due to surgical procedure to foot. Treatment Plan Physical Therapy Bed Mobility Training,Transfer Training,Gait Training, Treatment Plan Therapeutic Exercise Other Ambulation w/fww Recommendations and Next Treatment Focus Precautions Other Precautions soft cast on R foot Weight Bearing Status Weight Bearing Non-Weight Bearing Status Discharge Recommendations PT Discharge Home vs SNF Recommendations Other Discharge Daughter (MARINE METEOROLOGIST) unsure if pt will need SNF Recommendations
[2025-02-23] MEDS: INSULIN LISPRO 100 UNIT/ML 3ML VIAL SUBCUT (12:46)
--- NOTE | 2025-02-23 13:41 | OT.IP.EVAL ---
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) Charcot's joint, right ankle and foot (02/19/25) Surgery Performed Operation Date: 02/19/25 07:45 Actual Procedures p tibiotalar fusion, ankle charcots joint and talocalcaneal fusion(Right) - Wellington Nelson DPM Past Medical History (Last Reviewed 02/19/25 @ 16:51 by Andrea Paul MD) Ankle fracture, right (10/23/24) Diabetes GERD (gastroesophageal reflux disease) HLD (hyperlipidemia) HTN (hypertension) NSTEMI (non-ST elevated myocardial infarction) (10/24/24) 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) PVD (peripheral vascular disease) Surgical History (Last Reviewed 02/19/25 @ 16:51 by Andrea Paul MD) History of amputation of toe History of ankle surgery (10/29/24) Hx of cardiac cath (10/26/24) Occupational Therapy Inpatient Evaluation/Re-Eval M1 PT/OT-IP Prior Functional Status Start: 02/22/25 14:17 Freq: NEEDED Status: Active Protocol: Document 02/23/25 13:19 [facility] (Rec: 02/23/25 13:41 [facility] Desktop) Medical Review Prior Functional Status Medical History Yes Reviewed Diet/Fluid Regular Consistency Communication pts dtr present at eval. Pt understands some Romansh but pts dtr assisted in fluid communication Mobility and Gait Per dtr, pt has been NWB since October. This is the third sx pt has had on her R ankle Activities of Daily Prior to October pt was mod I with all ADLs except driving Living and IADL's . Since October, pt has needed assist especially with toileting hygiene but some assist with all ADLs and IADLs per dtr Social History Household Members children Living Arrangements Apartment/Condo Number of Stairs To Per dtr, pt lives in an apartment that is designed for Enter/Railing? people with disabilities. Home Environment Standard Height Toilet,Tub/Shower,Built-In Shower Seat Home Equipment Front Wheel Walker,Manual Wheelchair,Grab Bars Near Toilet,Grab Bars In Shower M2 OT-IP Current Condition Start: 02/23/25 13:19 Freq: Status: Active Protocol: Document 02/23/25 13:19 [facility] (Rec: 02/23/25 13:41 [facility]) Occupational Therapy Current Condition Current Condition Evaluation Date 02/23/25 Treatment Diagnosis surgical fusion R ankle, decreased self care Weight Bearing Status Weight Bearing Non-Weight Bearing Status Allowed Weight R LE Bearing Amount ( enter % or #) (%) M3 OT- IP Subjective and Pain Start: 02/23/25 13:19 Freq: Status: Active Protocol: Document 02/23/25 13:19 [facility] (Rec: 02/23/25 13:41 [facility]) OT- Subjective Occupational Therapy Visit Type Type Initial Evaluation Visit Start Time 12:00 Visit Stop Time 12:36 Occupational Therapy Visit Comments Patient Comments Pt and dtr agreeable to OT eval. Through the dtr's translation, pt expresses fear of R ankle not healing and of losing her strength to care for herself. Patient/Caregiver To get better Goals OT Pain Assessment Pain Present Pain Present Denied Pain M4 OT- IP ADL's Start: 02/23/25 13:19 Freq: Status: Active Protocol: Document 02/23/25 13:19 [facility] (Rec: 02/23/25 13:41 [facility]) OT [id number]-Xkitaln General Evaluation Self-Feeding Ability Independent OT ADL-Grooming General Evaluation Areas Needing Retrieving/Set-up of Grooming Items Assistance Comments OT Grooming Comments Pt brushed her hair on setup from seated position OT ADL-Oral Care General Eval Oral Care Ability Standby Assistance Areas of Assistance Retrieving/Set-Up of Items Comments Oral Care Comments Pt performs oral hygiene while up in chair on setup OT ADL-Dressing General Eval Lower Body Dressing Total Assistance Ability Comments OT Dressing Comments OT discussed AE for LB dressing with pt and dtr. Pt is not interested in trying them. Pt unable to reach her sock from the chair. Pt reports she can perform when sitting on the edge of her bed at home. OT ADL-Toileting Comments OT Toileting not observed, pts dtr reports pt has been needing Comments assist with hygiene since October due to NWB OT ADL-Bathing Comments OT Bathing Comments not observed, sponge bath recommended at this time M5 OT- IP IADL's Start: 02/23/25 13:19 Freq: Status: Active Protocol: Document 02/23/25 13:19 [facility] (Rec: 02/23/25 13:41 [facility]) OT-Instrumental Activities of Daily Living Deficits IADL Deficits Deficits Identified Home Safety Awareness Awareness of Need Good Awareness for Assistance at Home Money Management Money Management Caregiver Provides Assistance Meal Preparation Meal Preparation Caregiver Provides Assist Insulation Inspector Insulation Inspector Caregiver Provides Assist Driving Driving Caregiver Provides Assist M6 OT- IP Functional Cognition Start: 02/23/25 13:19 Freq: Status: Active Protocol: Document 02/23/25 13:19 SADIQCECILIOLIZANDRO (Rec: 02/23/25 13:41 [facility]) Cognitive Factors Limiting Selfcare Function Cognitive Ability Level of Alertness Alert Patient Orientation Name,Place,Situation Attention Span Capable of Focused Attention,Capable of Sustained Ability Attention Ability to Follow Able to Follow One Step Commands Commands Safety Awareness No Deficits Noted OT- Vision and Hearing OT- Hearing Assessment OT- Hearing WFL Assessment OT- Vision Assessment Visual Acuity WFL M7 OT- IP Mobility and Balance Start: 02/23/25 13:19 Freq: Status: Active Protocol: Document 02/23/25 13:19 SADIQCECILIOLIZANDRO (Rec: 02/23/25 13:41 [facility]) OT- Bed Mobility Assessment Rolling Type of Rolling Roll to Left Level of Assistance Moderate Assistance Supine to Sit Supine to Sit Assist Moderate Assistance,Bedrails Sit to Supine Sit to Supine Assist Moderate Assistance Scooting Scooting to Edge of Moderate Assistance Bed OT-Transfer Assessment Sit to and From Stand Sit to and from Minimal Assistance Stand Transfers Transfer Ability Minimal Assistance Devices Transfer Assistive Gait Belt,Front Wheeled Walker Devices Comments Mobility Comments Pt able to maintain NWB status. Pt needs assistance managing all attachments (leads, wires, tubes, etc) OT- Balance Assessment Sitting Balance and Reactions Static Sitting Good Balance Ability Dynamic Sitting Fair Balance Ability Standing Balance and Reactions Static Standing Good Balance Ability Dynamic Standing Fair Balance Ability M8 OT- IP Objective Assessments Start: 02/23/25 13:19 Freq: Status: Active Protocol: Document 02/23/25 13:19 [facility] (Rec: 02/23/25 13:41 [facility]) OT Gross Range of Motion Upper Extremity Range of Motion Assessment Within Functional Limits OT Strength Upper Extremity Strength Assessment Bilaterally Impaired Shoulder 4- Elbow 4- Hand 4 Hand Aircraft Fueler Strength Hand Dominance Right OT-Muscle Tone Assessment Muscle Tone WNL Yes OT Sensation Assessment Edema Edema Absent M9 OT- IP Assessment and Plan Start: 02/23/25 13:19 Freq: Status: Active Protocol: Document 02/23/25 13:19 [facility] (Rec: 02/23/25 13:41 [facility] Desktop) OT Summary Assessment and Plan Potential Rehabilitation Excellent Potential Analytic Complexity Low at Evaluation Summary OT Impairments Strength,Balance,Functional Mobility,Grooming,Dressing, Toileting,Bathing,Toilet Transfers,Shower Transfers, Activity Tolerance Progress Towards Progressing Toward Goals Goals Assessment Summary Pt is 60 yo female who is Micronesian speaking. Pt underwent R ankle fusion and is NWB. Per pts dtr, this is the third operation she has had on her R ankle. Pt has been NWB since October. Prior to October pt was I with all BADL and functional mobility. Since October pt has been transferring from her WC to other surfaces and has required some level of assist with her BADLs. Pt performed bed mobility with MOD A, functional t/f with MIN A, and BADLs with Set-up to TOTAL A. Pt presents with UE weakness, decreased balance, and decreased activity tolerance. Skilled OT services are appropriate to address these deficits and promote return to PLOF. OT recommends home with assist and HH vs SNF for rehab . Pt and dtr would prefer for pt to dc home with HH services. Goals Grooming Goal Independent Dressing Goal Minimal Assistance Toileting Goal Contact Guard Assistance Bathing Goal Contact Guard Assistance Toilet Transfer Goal Independent,Grab Bars Shower Transfer Goal Independent,Tub Transfer Bench,Grab Bars Days to Meet Goals 10 Frequency of Treatment Other frequency 5x/wk Treatment Plan OT Treatment Plan ADL Training,Functional Mobility,Therapeutic Exercises, Patient/Family Education,Discharge Planning Discharge Recommendations OT Discharge Home vs SNF Recommendations Other Discharge Home with Assist and HH vs SNF Recommendations Transportation Needs Private Vehicle,Wheelchair/Cabulance at Discharge
[2025-02-23 13:55] LABS: Hematocrit 26.2 % (36-46); Hemoglobin 8.8 g/dL (12.0-16.0)
--- NOTE | 2025-02-23 15:31 | CM.DPNOTE ---
DCP Note FLOORHAND reviewed EMR per provider, not discharging today. per RN, H&H dropped again, pt dehydrated so fluids started. lower BP again. FLOORHAND attempted to meet with pt x3, either working with OT, nursing staff, or getting wound vac changed. per therapies, rec home with assistance vs SNF. dtr has reported she and pt would rather have pt dc home with HH. P: anticipate dc home when medically stable with wound vac, dtr, and [facility] to follow. OP wound care as well. will continue to follow as needed for DCP coordination AMELIA Hinds
[2025-02-23] MEDS: ATORVASTATIN 20 MG TABLET PO (20:27)
[2025-02-24 05:19] LABS: Add Manual Diff / Slide Review NO; Hematocrit 25.4 % (36-46); Hemoglobin 8.4 g/dL (12.0-16.0); Lymphocytes Absolute Auto 2000 /uL (1100-4500); Mean Corpuscular HGB Conc 33.2 % (30-36); Mean Corpuscular Hemoglobin 28.0 PG (26-34); Mean Corpuscular Volume 84.5 fL (80-100); Platelet Count 309 X10^3/uL (150-400)
[2025-02-24 05:38] LABS: Blood Urea Nitrogen 19 mg/dL (7-17); Calcium 8.7 mg/dL (8.4-10.2); Carbon Dioxide 31 mmol/L (22-32); Chloride 104 mmol/L (98-107); Estimated Glomerular Filt Rate > 60 mL/min (>60); Glucose 85 mg/dL (70-99); HEMOLYSIS < 15 (0-50); Potassium 3.5 mmol/L (3.4-5.1); Sodium 138 mmol/L (137-145)
[2025-02-24 07:38] VITALS: O2SAT 100
[2025-02-24 08:48] VITALS: O2SAT 100
[2025-02-24 08:49] VITALS: BP 160/72; PULSE 90; O2SAT 98
[2025-02-24] MEDS: INSULIN LISPRO 100 UNIT/ML 3ML VIAL 7 UNIT SUBCUT (09:00)
--- NOTE | 2025-02-24 09:04 | PM.DS.1 ---
History of Present Illness History of Present Illness Chief complaint: R ankle fusion Narrative: From H&P: The patient was a 60-year-old female with history of diabetes who underwent an ankle revision today. She had a talus fusion and wound VAC application. Her case was complicated by a 250 mL blood loss as well as persistent hypotension requiring 4 L of crystalloid and multiple boluses of Wilber-Synephrine. She required pressors for a short time after the surgery and then stabilized. She was transferred to the ICU he was able to come off from pressors. She does have a history of a perioperative NSTEMI in the past but denies any chest pain, or dyspnea. She does have a history of CLARA in his used BiPAP while in the hospital in the past. There were no other complications reported from the surgical team. Discharge Providers Provider Date of admission: 02/19/25 06:11 Discharge Date: 02/24/25 Primary care physician: Andrea Paul MD Consults: 02/19/25 15:37 Consult to Wound Care Routine Comment: Consulting Provider: [facility] 02/19/25 15:38 Consult to Home Health Routine Comment: Reason For Exam: Post-op 02/20/25 15:55 Consult to Dietitian, Adult Routine Comment: Reason For Exam: diabetes, high blood sugar 02/21/25 07:51 Consult to Occupational Therapy Evaluate & Treat Comment: Physician Instructions: Evaluate and treat Consult to Physical Therapy Evaluate & Treat Comment: Physician Instructions: Evaluate and Treat Discharge provider: Andrea Paul MD Summary Hospital Course Discharge Diagnosis: 1. Postoperative anemia (blood loss), improved. Hemoglobin was down to 5.9 02/21. It is up to 8.5 02/22 after 2 units of packed red blood cells. She had documented a 150 cc of estimated blood loss during surgery. She required blood products while in the hospital. 2. Diabetes mellitus type 2, insulin requiring, stable. Blood sugars have ranged from 164 to 187 overnight. She continues Lantus 28 units b.i.d. and sliding scale insulin. 3. Obstructive sleep apnea with use of noninvasive ventilation at home, stable. Resume her usual treatment at home. 4. Hypertension, stable. Blood pressure is normotensive. Her tachycardia has resolved as well since her transfusion. Continue losartan, metoprolol, hydrochlorothiazide. 5. Class 3 obesity, stable. BMI is 44.6. Would benefit from weight reduction 6. Postoperative from tibiotalar arthrodesis and talocalcaneal arthrodesis. Stable. Portable Wound VAC arrived yesterday. Discussed importance of monitoring the drainage in the wound VAC for evidence of active bleeding or infectious appearing drainage. Ongoing management per Podiatry. Hospital Course: She was admitted to the hospital and did require blood units for a blood loss anemia. Her hemoglobin was monitored carefully. She did have a wound VAC change on February 23. She was putting out a amount of out the wound VAC through the morning of February 23. She did well over the last 20 a stable hemoglobin. Her wound condition with for discharge with close follow up with wound care and Dr. Nelson of Podiatry. Status at Discharge Cognitive/behavioral status at discharge: oriented Functional status at discharge: uses cane/walker Overall status at discharge: patient is progressing back to baseline Time Spent with Patient Time spent: Greater than 30 minutes Exam Vital Signs (past 8 hours): Fraction of Inspired Oxygen 25 Oxygen Delivery Method Room Air,Nasal Cannula Oxygen Flow Rate 3 Narrative Exam Narrative: NAD, alert and oriented. Fluent speech. Lungs are clear, normal rate and effort. Heart is regular, no murmur gallop or rub. Abdomen is soft, non distended. Extremities are free of edema. Right leg is wrapped, toes unremarkable, wound VAC in place. Objective Labs 02/24/25 04:55 02/24/25 04:55 Labs: Laboratory Results - last 24 hr 02/23/25 02/23/25 02/23/25 12:23 13:25 16:52 WBC RBC Hgb 8.8 L Hct 26.2 L MCV MCH MCHC RDW Plt Count Neut % (Auto) Lymph % (Auto) [place] % (Auto) Eos % (Auto) Baso % (Auto) Neut # (Auto) Lymph # (Auto) [place] # (Auto) Eos # (Auto) Baso # (Auto) Sodium Potassium Chloride Carbon Dioxide BUN Creatinine Estimated GFR BUN/Creatinine Ratio Glucose POC Whole Bld Glucose 135 H 73 Calcium 02/23/25 02/24/25 02/24/25 20:26 01:45 04:55 WBC 8.4 RBC 3.00 L Hgb 8.4 L Hct 25.4 L MCV 84.5 MCH 28.0 MCHC 33.2 RDW 14.0 Plt Count 309 Neut % (Auto) 61.6 Lymph % (Auto) 24.3 L [place] % (Auto) 7.5 Eos % (Auto) 5.5 H Baso % (Auto) 1.1 Neut # (Auto) 5200 Lymph # (Auto) 2000 [place] # (Auto) 600 Eos # (Auto) 500 H Baso # (Auto) 100 Sodium 138 Potassium 3.5 Chloride 104 Carbon Dioxide 31 BUN 19 H Creatinine 0.70 Estimated GFR > 60 BUN/Creatinine Ratio 27.1 H Glucose 85 POC Whole Bld Glucose 126 H 93 Calcium 8.7 02/24/25 08:47 WBC RBC Hgb Hct MCV MCH MCHC RDW Plt Count Neut % (Auto) Lymph % (Auto) [place] % (Auto) Eos % (Auto) Baso % (Auto) Neut # (Auto) Lymph # (Auto) [place] # (Auto) Eos # (Auto) Baso # (Auto) Sodium Potassium Chloride Carbon Dioxide BUN Creatinine Estimated GFR BUN/Creatinine Ratio Glucose POC Whole Bld Glucose 81 Calcium [facility] Medical History 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) GERD (gastroesophageal reflux disease) Ankle fracture, right (10/23/24) PVD (peripheral vascular disease) HTN (hypertension) Diabetes NSTEMI (non-ST elevated myocardial infarction) (10/24/24) HLD (hyperlipidemia) Surgical History History of ankle surgery (10/29/24) Hx of cardiac cath (10/26/24) History of amputation of toe Social History household members: children alcohol intake: never Discharge Assessment & Plan Assessment and Plan Assessment: 1. Postoperative anemia (blood loss), improved. Hemoglobin was down to 5.9 02/21. It is up to 8.5 02/22 after 2 units of packed red blood cells. She had documented a 150 cc of estimated blood loss during surgery. She required blood products while in the hospital. 2. Postoperative day 3 from tibiotalar arthrodesis and talocalcaneal arthrodesis. Stable. Portable Wound VAC in place. Discharge Plan Discharge Plan Patient Disposition: Home Provider Discharge Comment: Stable for discharge home. Discharge orders & Medications Prescriptions: Continued hydrochlorothiazide 25 mg tablet 25 mg PO DAILY gabapentin 100 mg capsule 200 mg PO TID glipizide 5 mg tablet extended release 24hr 5 mg PO QAM Patient Comments: has not started simvastatin 40 mg tablet 40 mg PO QPM losartan 100 mg tablet 100 mg PO DAILY metoprolol tartrate 25 mg tablet 25 mg PO DAILY aspirin 81 mg capsule 81 mg PO DAILY cetirizine 10 mg capsule 10 mg PO DAILY PRN (Reason: Allergies) Mounjaro 2.5 mg/0.5 mL pen injector 2.5 mg SUBCUT QWEEK Patient Comments: pt has not yet started. will start after surgery Novolin 70/30 U-100 Insulin 100 unit/mL (70-30) suspension 36 unit SUBCUT BID Discontinued doxycycline monohydrate 100 mg capsule 100 mg PO BID Qty: 14 0RF Follow up/Referrals: Andrea Paul MD [Primary Care Provider, Internal Medicine] Discharge Health Status Multidrug resistant organism: No MDRO Diet/Activity/Treatments Diet: Carb-consistent/Diabetic Visit Report/Discharge Packet Instructions: Arthrodesis of Foot and Ankle -- Arthroscopic Surgery Stand Alone Forms: Patient Portal/API Discharge Data Primary Care Provider: Andrea Paul Quality VTE Deep Vein Thrombosis/Pulmonary Embolism Present on Admission: No
[2025-02-24] MEDS: METOPROLOL IR 25 MG TABLET PO (09:50)
[2025-02-24] MEDS: LOSARTAN 50 MG TABLET 100 MG PO (09:51)
[2025-02-24] MEDS: SODIUM CHLORIDE 0.9% FLUSH 10 ML IV (09:51)
[2025-02-24] MEDS: DOXYCYCLINE HYCLATE 100 MG TABLET PO (09:51)
[2025-02-24] MEDS: GABAPENTIN 100 MG CAPSULE 200 MG PO (09:51)
[2025-02-24] MEDS: INSULIN GLARGINE 100 UNIT/ML 3ML PEN 28 UNIT SUBCUT (09:52)
[2025-02-24] MEDS: ACETAMINOPHEN 325 MG TABLET 650 MG PO (10:15)
--- NOTE | 2025-02-24 10:22 | CM.DPNOTE ---
DCP Continued: Reviewed EMR and team rounds for pt?s medical status. Per provider, pt cleared to discharge home with daughter to transport. Per RN, pt has home wound vac available and daughter to arrive shortly for teaching. [facility] will follow with pt care, will need to send signed discharge summary when available. Plan: Anticipating dc home with daughter to transport on 02/24 or when medically cleared, [facility] to follow and pt [facility]. M Team will continue to follow for coordination of discharge plans. BRITTANY Samuel
[2025-02-24 12:00] VITALS: TEMP 36.2
--- NOTE | 2025-02-24 12:15 | PT.IPTN ---
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) Charcot's joint, right ankle and foot (02/19/25) Surgery Performed Operation Date: 02/19/25 07:45 Actual Procedures p tibiotalar fusion, ankle charcots joint and talocalcaneal fusion(Right) - Wellington Nelson DPM Physical Therapy Treatment Note M2 PT-IP Current Condition Start: 02/22/25 14:17 Freq: NEEDED Status: Active Protocol: Document 02/22/25 14:54 [facility] (Rec: 02/22/25 15:18 [facility] [id number]) Physical Therapy Current Condition Current Condition Evaluation Date 02/22/25 Treatment Diagnosis Right ankle fusion, pt became hypotensive postoperatively Onset Date 02/19/25 M3 PT-IP Subjective Start: 02/22/25 14:17 Freq: NEEDED Status: Active Protocol: Document 02/24/25 12:15 AB (Rec: 02/24/25 13:59 AB [id number]) Subjective Physical Therapy Visit Type Type Treatment Note Visit Start Time 13:00 Visit Stop Time 12:35 Number of BLUEPRINT READER Visits 0 Therapy Pain Assessment Pain When Pain Assessed At Rest Pain Present Pain Present Pain Reported Location Right Foot Scale Used pain scale not stated M4 PT-IP Mobility and Gait Start: 02/22/25 14:17 Freq: NEEDED Status: Active Protocol: Document 02/24/25 12:15 [facility] (Rec: 02/24/25 13:59 [facility] [id number]) PT-Transfer Assessment Sit to and From Stand Sit to and from Moderate Assistance,1 Person Assistance,Use of Upper Stand Extremities Equipment Transfer Assistive Gait Belt,Front Wheeled Walker Device Orthotic/Prosthetic No Devices or Brace: Transfers Transfer Destination Bed,Chair Transfer Technique Stand Step Pivot Transfer Ability Level of Assist Moderate Assistance,Maximum Assistance,1 Person Assistance,Use of Upper Extremities Comments Mobility Comments nurse informed PT that pt's daughter has questions and wants caregiver training. pt with previous ankle surgeries and has been NWB prior to recent surgery and daughter has been assisting pt at home but daughter requesting for caregiver training. checked on pt and daughter in room. daughter stated that she thinks she is ok with assisting pt but just wants pt to have a shower prior to going home today. Clarified with daughter regarding her request for caregiver training. daughter has concerns about wound vac placement. informed daughter on using wound vac bag how to place in in walker, wound vac suzie on pt or daughter can hold on to wound vac. pt agreed to do transfer. daughter was able to put safety belt on. pt required mod A for sit to stand. educated on NWB on RLE. pt completed step transfer using FWW mod to max A and max cues chair to bed. educated pt and daughter on how to do partial stand pivot transfer vs step transfer using FWW. pt completed partial stand pivot transfer bed to chair. daughter was able to assist. positioned pt on the chair. call light and table placed within reach. pt and daughter without further concerns with regarding to PT but ask when OT will come to give pt a shower. Informed OT and nurse. M5 PT-IP Objective Assessments Start: 02/22/25 14:17 Freq: NEEDED Status: Active Protocol: Document 02/23/25 12:23 KJ (Rec: 02/23/25 12:29 KJ [id number]) Orientation Orientation/Cognition Level of Alertness Alert Orientation Name,Age,Birthday,Month,Date,Year,Day of Week,Place, Situation Language Function Mongolian as Second Language Ability Safety Awareness Understands Safety Issues Memory Description No Deficits Noted Comments Pt speaks Setswana and has her daughter here to translate. Gross Range of Motion Upper Extremity ROM Assessment Within Functional Limits Lower Extremity ROM Assessment Right Impaired M6 PT-IP Treatment Start: 02/22/25 14:17 Freq: NEEDED Status: Active Protocol: Document 02/24/25 12:15 AB (Rec: 02/24/25 13:59 AB [id number]) Physical Therapy Treatment Education Education Provided Weight Bearing Status,Safety M7 PT-IP Assessment and Plan Start: 02/22/25 14:17 Freq: NEEDED Status: Active Protocol: Document 02/24/25 12:15 AB (Rec: 02/24/25 13:59 AB [id number]) PT Summary Assessment and Plan Potential Rehabilitation Fair Potential Summary Impairments Pain,ROM,Strength,Balance,Coordination,Sensation,Tone, Cognition,Bed Mobility,Transfers,Gait,Activity Tolerance Progress Towards Slow Progress due to Medical Issues,Slow Progress due Goals to Activity Tolerance Assessment Summary pt requiring mod to max A for transfer using FWW and plans to go home with daughter to assist. pt is NWB on RLE. pt will benefit from HHPT. Goals Bed Mobility Goal Minimal Assistance Transfer Goal Contact Guard Assistance,Front Wheeled Walker Gait Goal Contact Guard Assistance,Front Wheel Walker Days to Meet Goals 10 Frequency of Treatment Frequency Of Once a Day Treatment Treatment Plan Physical Therapy Bed Mobility Training,Transfer Training,Gait Training, Treatment Plan Therapeutic Exercise,Balance Retraining,Post Op Education,Discharge Planning,Hot or Cold Pack, Neuromuscular Re-ed Weight Bearing Status Weight Bearing Non-Weight Bearing Status Allowed Weight non WB RLE Bearing Amount ( enter % or #) (%) Recommendations To Nursing Amount of Assist 1 Person Assist Needed Discharge Recommendations PT Discharge Home with 04/12 Assist Available,Home Health Recommendations Transportation Needs Wheelchair/Cabulance at Discharge - PT assist 1
--- NOTE | 2025-02-24 12:46 | OT.IPNOTE ---
Pt's daughter wanting pt to shower prior to going home and agreed best to have nursing assist with use of rolling shower chair. Per nursing already asked about a shower prior but refused. Pt to be discharged today.
--- NOTE | 2025-02-24 14:20 | PC.NURSE ---
Discharge instructions reviewed with patient and her daughter, they have no further questions or concerns. Wound vac exchanged for wound vac delivered from for patient's discharge. State they have wound care appt. on Sunday. Escorted out via [employer] to discharge to home with her daughter.
== END 2025-02-24 14:10 | disposition home health service (06) | DRG 464 ==
LOC: OR 06:55 → ICU 02-20 10:52 → OR 02-20 10:57 → ICU 02-20 10:57
PROVIDERS: Family Medicine; Admitting Provider Podiatrist Foot & Ankle Surgery; PCP Hospitalist; Referring Provider Student in an Organized Health Care Education/Training Program; Visit Provider Podiatrist Foot & Ankle Surgery
PROC: 0QPJ04Z Removal of Internal Fixation Device from Right Fibula, Open Approach (ICD-10-PCS; principal; 2025-02-19 07:45)
DX: M14.671 Charcot's joint, right ankle and foot (principal); D62 Acute posthemorrhagic anemia; M84.663 Pathological fracture in other disease, right fibula; L97.319 Non-pressure chronic ulcer of right ankle with unspecified severity; Z68.41 Body mass index [BMI] 40.0-44.9, adult; M87.9 Osteonecrosis, unspecified; E11.622 Type 2 diabetes mellitus with other skin ulcer; L89.519 Pressure ulcer of right ankle, unspecified stage; I95.81 Postprocedural hypotension; G47.33 Obstructive sleep apnea (adult) (pediatric); I10 Essential (primary) hypertension; E66.813 Obesity, class 3; E78.5 Hyperlipidemia, unspecified; I25.2 Old myocardial infarction; Z98.890 Other specified postprocedural states; Z79.4 Long term (current) use of insulin; Z79.85 Long-term (current) use of injectable non-insulin antidiabetic drugs
CPT/HCPCS: 36415; 36430; 64450; 73610; 76000; 80048; 80053; 82962; 83735; 84484; 85014; 85018; 85025; 85027; 86850; 86900; 86901; 86945; 87070; 87075; 87205; 93005; 94660; 97162; 97165; 97530; P9016; C1713; J0131; J0689; J1171; J1815; J2250; J2405; J2704; J2765; J3010; J7030; J7120

== ENCOUNTER → 2025-02-27 13:50 | Outpatient (CLI) | payer OTHER, SELFPAY ==
[2025-02-19 16:13] VITALS: BMI 44.5
[2025-02-20 04:00] VITALS: PULSE 104; RESP 23; O2SAT 97
== END ==
LOC: WC 13:56
PROVIDERS: Family Provider Hospitalist; Referring Provider Podiatrist Foot & Ankle Surgery; Visit Provider Physician Assistant
DX: T81.89XA Other complications of procedures, not elsewhere classified, initial encounter (principal); L98.8 Other specified disorders of the skin and subcutaneous tissue; S91.001A Unspecified open wound, right ankle, initial encounter; S91.301A Unspecified open wound, right foot, initial encounter; E11.628 Type 2 diabetes mellitus with other skin complications; R60.0 Localized edema
CPT/HCPCS: 11042; 11045; 97606; 99204; 99214

== ENCOUNTER → 2025-03-02 14:10 | Outpatient (CLI) | payer OTHER, SELFPAY ==
[2025-02-19 16:13] VITALS: BMI 44.5
[2025-02-20 04:00] VITALS: PULSE 104; RESP 23; O2SAT 97
== END ==
LOC: WC 14:15
PROVIDERS: Family Provider Hospitalist; PCP Student in an Organized Health Care Education/Training Program; Referring Provider Podiatrist Foot & Ankle Surgery; Visit Provider Surgery
DX: T81.89XA Other complications of procedures, not elsewhere classified, initial encounter (principal); S91.002A Unspecified open wound, left ankle, initial encounter; S91.001A Unspecified open wound, right ankle, initial encounter; S91.301A Unspecified open wound, right foot, initial encounter; R60.0 Localized edema; Z98.1 Arthrodesis status
CPT/HCPCS: 11042; 11043; 11046; 97606; 99213

== ENCOUNTER → 2025-03-04 15:13 | Outpatient (CLI) | payer OTHER, SELFPAY ==
[2025-02-19 16:13] VITALS: BMI 44.5
[2025-02-20 04:00] VITALS: PULSE 104; RESP 23; O2SAT 97
== END ==
LOC: WC 15:14
PROVIDERS: Family Provider Hospitalist; PCP Student in an Organized Health Care Education/Training Program; Referring Provider Student in an Organized Health Care Education/Training Program; Visit Provider Surgery
DX: T81.89XA Other complications of procedures, not elsewhere classified, initial encounter (principal); S91.001A Unspecified open wound, right ankle, initial encounter; R60.0 Localized edema
CPT/HCPCS: 97606

== ENCOUNTER → 2025-03-06 15:03 | Outpatient (CLI) | payer OTHER, SELFPAY ==
[2025-02-19 16:13] VITALS: BMI 44.5
[2025-02-20 04:00] VITALS: PULSE 104; RESP 23; O2SAT 97
== END ==
LOC: WC 15:03
PROVIDERS: Family Provider Hospitalist; PCP Student in an Organized Health Care Education/Training Program; Referring Provider Student in an Organized Health Care Education/Training Program; Visit Provider Physician Assistant
DX: T81.89XA Other complications of procedures, not elsewhere classified, initial encounter (principal); L98.8 Other specified disorders of the skin and subcutaneous tissue; S91.001A Unspecified open wound, right ankle, initial encounter; S91.301A Unspecified open wound, right foot, initial encounter; R60.0 Localized edema
CPT/HCPCS: 97606

== ENCOUNTER → 2025-03-09 14:32 | Outpatient (CLI) | payer OTHER, SELFPAY ==
[2025-02-19 16:13] VITALS: BMI 44.5
[2025-02-20 04:00] VITALS: PULSE 104; RESP 23; O2SAT 97
== END ==
LOC: WC 14:33
PROVIDERS: Family Provider Hospitalist; PCP Student in an Organized Health Care Education/Training Program; Referring Provider Physician Assistant; Visit Provider Surgery
DX: T81.89XA Other complications of procedures, not elsewhere classified, initial encounter (principal); L98.8 Other specified disorders of the skin and subcutaneous tissue; S91.001A Unspecified open wound, right ankle, initial encounter; S91.301A Unspecified open wound, right foot, initial encounter; R60.0 Localized edema
CPT/HCPCS: 97606

== ENCOUNTER → 2025-03-11 08:50 | Outpatient (CLI) | payer OTHER, SELFPAY ==
[2025-02-19 16:13] VITALS: BMI 44.5
[2025-02-20 04:00] VITALS: PULSE 104; RESP 23; O2SAT 97
== END ==
LOC: WC 08:51
PROVIDERS: Family Provider Hospitalist; PCP Student in an Organized Health Care Education/Training Program; Referring Provider Student in an Organized Health Care Education/Training Program; Visit Provider Surgery
DX: E11.52 Type 2 diabetes mellitus with diabetic peripheral angiopathy with gangrene (principal); T81.89XA Other complications of procedures, not elsewhere classified, initial encounter; S91.001A Unspecified open wound, right ankle, initial encounter; S91.301A Unspecified open wound, right foot, initial encounter; L98.8 Other specified disorders of the skin and subcutaneous tissue; R60.0 Localized edema; E11.628 Type 2 diabetes mellitus with other skin complications; E11.40 Type 2 diabetes mellitus with diabetic neuropathy, unspecified; Z98.1 Arthrodesis status; T84.293A Other mechanical complication of internal fixation device of bones of foot and toes, initial encounter; Z89.429 Acquired absence of other toe(s), unspecified side; Z79.2 Long term (current) use of antibiotics; Z99.3 Dependence on wheelchair; I10 Essential (primary) hypertension; E78.5 Hyperlipidemia, unspecified; I25.2 Old myocardial infarction
CPT/HCPCS: 11042; 11045; 97605

== ENCOUNTER → 2025-03-31 13:55 | Outpatient (CLI) | payer OTHER, SELFPAY ==
[2025-02-19 16:13] VITALS: BMI 44.5
[2025-02-20 04:00] VITALS: PULSE 104; RESP 23; O2SAT 97
== END ==
LOC: WC 13:57
PROVIDERS: Family Provider Hospitalist; PCP Student in an Organized Health Care Education/Training Program; Referring Provider Student in an Organized Health Care Education/Training Program; Visit Provider Surgery
DX: E11.622 Type 2 diabetes mellitus with other skin ulcer (principal); E11.621 Type 2 diabetes mellitus with foot ulcer; L97.312 Non-pressure chronic ulcer of right ankle with fat layer exposed; T81.89XA Other complications of procedures, not elsewhere classified, initial encounter; S91.301A Unspecified open wound, right foot, initial encounter; L97.512 Non-pressure chronic ulcer of other part of right foot with fat layer exposed; M86.171 Other acute osteomyelitis, right ankle and foot; R60.0 Localized edema
CPT/HCPCS: 11042; 97597; 97605; 99214

== ENCOUNTER → 2025-04-06 08:28 | Outpatient (CLI) | payer OTHER, SELFPAY ==
[2025-02-19 16:13] VITALS: BMI 44.5
[2025-02-20 04:00] VITALS: PULSE 104; RESP 23; O2SAT 97
== END ==
LOC: WC 08:30
PROVIDERS: Family Provider Hospitalist; PCP Student in an Organized Health Care Education/Training Program; Referring Provider Student in an Organized Health Care Education/Training Program; Visit Provider Surgery
DX: E11.621 Type 2 diabetes mellitus with foot ulcer (principal); E11.622 Type 2 diabetes mellitus with other skin ulcer; L97.312 Non-pressure chronic ulcer of right ankle with fat layer exposed; L97.412 Non-pressure chronic ulcer of right heel and midfoot with fat layer exposed; M86.171 Other acute osteomyelitis, right ankle and foot; T81.89XA Other complications of procedures, not elsewhere classified, initial encounter; S91.301A Unspecified open wound, right foot, initial encounter; L97.512 Non-pressure chronic ulcer of other part of right foot with fat layer exposed; R60.0 Localized edema
CPT/HCPCS: 11042; 11043; 97605

== ENCOUNTER → 2025-04-08 08:37 | Outpatient (CLI) | payer OTHER, SELFPAY ==
[2025-02-19 16:13] VITALS: BMI 44.5
[2025-02-20 04:00] VITALS: PULSE 104; RESP 23; O2SAT 97
== END ==
LOC: WC 08:38
PROVIDERS: Family Provider Hospitalist; PCP Student in an Organized Health Care Education/Training Program; Referring Provider Student in an Organized Health Care Education/Training Program; Visit Provider Nurse Practitioner Family
DX: E11.622 Type 2 diabetes mellitus with other skin ulcer (principal); L97.312 Non-pressure chronic ulcer of right ankle with fat layer exposed; T81.89XA Other complications of procedures, not elsewhere classified, initial encounter; S91.301A Unspecified open wound, right foot, initial encounter; E11.621 Type 2 diabetes mellitus with foot ulcer; L97.512 Non-pressure chronic ulcer of other part of right foot with fat layer exposed; R60.0 Localized edema
CPT/HCPCS: 97605

== ENCOUNTER → 2025-04-13 14:15 | Outpatient (CLI) | payer OTHER, SELFPAY ==
[2025-02-19 16:13] VITALS: BMI 44.5
[2025-02-20 04:00] VITALS: PULSE 104; RESP 23; O2SAT 97
== END ==
LOC: WC 14:21
PROVIDERS: Family Provider Hospitalist; PCP Student in an Organized Health Care Education/Training Program; Referring Provider Student in an Organized Health Care Education/Training Program; Visit Provider Surgery
DX: E11.622 Type 2 diabetes mellitus with other skin ulcer (principal); E11.621 Type 2 diabetes mellitus with foot ulcer; L97.312 Non-pressure chronic ulcer of right ankle with fat layer exposed; L97.512 Non-pressure chronic ulcer of other part of right foot with fat layer exposed; T81.89XA Other complications of procedures, not elsewhere classified, initial encounter; S91.301A Unspecified open wound, right foot, initial encounter; M86.171 Other acute osteomyelitis, right ankle and foot; R60.0 Localized edema
CPT/HCPCS: 11042; 11045; 97605

== ENCOUNTER → 2025-04-17 10:56 | Outpatient (CLI) | payer OTHER, SELFPAY ==
[2025-02-19 16:13] VITALS: BMI 44.5
[2025-02-20 04:00] VITALS: PULSE 104; RESP 23; O2SAT 97
== END ==
LOC: WC 10:58
PROVIDERS: Family Provider Hospitalist; PCP Student in an Organized Health Care Education/Training Program; Referring Provider Student in an Organized Health Care Education/Training Program; Visit Provider Physician Assistant
DX: E11.622 Type 2 diabetes mellitus with other skin ulcer (principal); L97.318 Non-pressure chronic ulcer of right ankle with other specified severity; L97.312 Non-pressure chronic ulcer of right ankle with fat layer exposed; E11.621 Type 2 diabetes mellitus with foot ulcer; L97.412 Non-pressure chronic ulcer of right heel and midfoot with fat layer exposed; T81.89XA Other complications of procedures, not elsewhere classified, initial encounter; S91.301A Unspecified open wound, right foot, initial encounter; L98.8 Other specified disorders of the skin and subcutaneous tissue; L92.9 Granulomatous disorder of the skin and subcutaneous tissue, unspecified; R60.0 Localized edema; E11.628 Type 2 diabetes mellitus with other skin complications
CPT/HCPCS: 97605

== ENCOUNTER → 2025-04-20 08:59 | Outpatient (CLI) | payer OTHER, SELFPAY ==
[2025-02-19 16:13] VITALS: BMI 44.5
[2025-02-20 04:00] VITALS: PULSE 104; RESP 23; O2SAT 97
== END ==
LOC: WC 09:00
PROVIDERS: Family Provider Hospitalist; PCP Student in an Organized Health Care Education/Training Program; Referring Provider Student in an Organized Health Care Education/Training Program; Visit Provider Surgery
DX: E11.621 Type 2 diabetes mellitus with foot ulcer (principal); L97.412 Non-pressure chronic ulcer of right heel and midfoot with fat layer exposed; E11.622 Type 2 diabetes mellitus with other skin ulcer; L97.318 Non-pressure chronic ulcer of right ankle with other specified severity; L97.312 Non-pressure chronic ulcer of right ankle with fat layer exposed; M86.171 Other acute osteomyelitis, right ankle and foot; T81.89XA Other complications of procedures, not elsewhere classified, initial encounter; S91.301A Unspecified open wound, right foot, initial encounter; L98.8 Other specified disorders of the skin and subcutaneous tissue; L92.9 Granulomatous disorder of the skin and subcutaneous tissue, unspecified; E11.40 Type 2 diabetes mellitus with diabetic neuropathy, unspecified; I10 Essential (primary) hypertension; E78.5 Hyperlipidemia, unspecified; I25.2 Old myocardial infarction; Z99.3 Dependence on wheelchair; E11.51 Type 2 diabetes mellitus with diabetic peripheral angiopathy without gangrene; Z89.429 Acquired absence of other toe(s), unspecified side; T84.293S Other mechanical complication of internal fixation device of bones of foot and toes, sequela
CPT/HCPCS: 11042; 11045; 97605

== ENCOUNTER → 2025-04-23 14:12 | Outpatient (CLI) | payer OTHER, SELFPAY ==
[2025-02-19 16:13] VITALS: BMI 44.5
[2025-02-20 04:00] VITALS: PULSE 104; RESP 23; O2SAT 97
== END ==
LOC: WC 14:13
PROVIDERS: Family Provider Hospitalist; PCP Student in an Organized Health Care Education/Training Program; Referring Provider Student in an Organized Health Care Education/Training Program; Visit Provider Surgery
DX: E11.621 Type 2 diabetes mellitus with foot ulcer (principal); L97.312 Non-pressure chronic ulcer of right ankle with fat layer exposed; L97.318 Non-pressure chronic ulcer of right ankle with other specified severity; L97.418 Non-pressure chronic ulcer of right heel and midfoot with other specified severity; R60.0 Localized edema
CPT/HCPCS: 97605

== ENCOUNTER → 2025-04-27 11:06 | Outpatient (CLI) | payer OTHER, SELFPAY ==
[2025-02-19 16:13] VITALS: BMI 44.5
[2025-02-20 04:00] VITALS: PULSE 104; RESP 23; O2SAT 97
== END ==
LOC: WC 11:07
PROVIDERS: Family Provider Hospitalist; PCP Student in an Organized Health Care Education/Training Program; Referring Provider Student in an Organized Health Care Education/Training Program; Visit Provider Surgery
DX: E11.621 Type 2 diabetes mellitus with foot ulcer (principal); T81.89XA Other complications of procedures, not elsewhere classified, initial encounter; S91.301A Unspecified open wound, right foot, initial encounter; L97.312 Non-pressure chronic ulcer of right ankle with fat layer exposed; L97.512 Non-pressure chronic ulcer of other part of right foot with fat layer exposed; M86.171 Other acute osteomyelitis, right ankle and foot; R60.0 Localized edema; Z98.1 Arthrodesis status
CPT/HCPCS: 11042; 97605; 99213

== ENCOUNTER → 2025-04-30 09:30 | Outpatient (CLI) | payer OTHER, SELFPAY ==
[2025-02-19 16:13] VITALS: BMI 44.5
[2025-02-20 04:00] VITALS: PULSE 104; RESP 23; O2SAT 97
== END ==
LOC: WC 09:30
PROVIDERS: Family Provider Hospitalist; PCP Student in an Organized Health Care Education/Training Program; Referring Provider Podiatrist Foot & Ankle Surgery; Visit Provider Surgery
DX: E11.621 Type 2 diabetes mellitus with foot ulcer (principal); L97.312 Non-pressure chronic ulcer of right ankle with fat layer exposed; L97.412 Non-pressure chronic ulcer of right heel and midfoot with fat layer exposed; T81.89XA Other complications of procedures, not elsewhere classified, initial encounter; S91.301A Unspecified open wound, right foot, initial encounter; R60.0 Localized edema
CPT/HCPCS: 97605

== ENCOUNTER → 2025-05-04 14:54 | Outpatient (CLI) | payer OTHER, SELFPAY ==
[2025-02-19 16:13] VITALS: BMI 44.5
[2025-02-20 04:00] VITALS: PULSE 104; RESP 23; O2SAT 97
== END ==
LOC: WC 14:54
PROVIDERS: Family Provider Hospitalist; PCP Student in an Organized Health Care Education/Training Program; Referring Provider Student in an Organized Health Care Education/Training Program; Visit Provider Surgery
DX: E11.621 Type 2 diabetes mellitus with foot ulcer (principal); E11.622 Type 2 diabetes mellitus with other skin ulcer; L97.312 Non-pressure chronic ulcer of right ankle with fat layer exposed; L97.512 Non-pressure chronic ulcer of other part of right foot with fat layer exposed; T81.89XA Other complications of procedures, not elsewhere classified, initial encounter; S91.301A Unspecified open wound, right foot, initial encounter; M86.171 Other acute osteomyelitis, right ankle and foot; Z98.1 Arthrodesis status
CPT/HCPCS: 11042; 11045; 97605

== ENCOUNTER → 2025-05-11 16:24 | Outpatient (CLI) | payer OTHER, SELFPAY ==
[2025-02-19 16:13] VITALS: BMI 44.5
[2025-02-20 04:00] VITALS: PULSE 104; RESP 23; O2SAT 97
== END ==
LOC: WC 16:24
PROVIDERS: Family Provider Hospitalist; PCP Student in an Organized Health Care Education/Training Program; Referring Provider Student in an Organized Health Care Education/Training Program; Visit Provider Surgery
DX: E11.621 Type 2 diabetes mellitus with foot ulcer (principal); E11.622 Type 2 diabetes mellitus with other skin ulcer; L97.312 Non-pressure chronic ulcer of right ankle with fat layer exposed; L97.512 Non-pressure chronic ulcer of other part of right foot with fat layer exposed; T81.89XA Other complications of procedures, not elsewhere classified, initial encounter; S91.301A Unspecified open wound, right foot, initial encounter; M86.171 Other acute osteomyelitis, right ankle and foot; Z98.1 Arthrodesis status; Z48.89 Encounter for other specified surgical aftercare
CPT/HCPCS: 11042; 11045; 97597